=== PATIENT | female | born 1950 | race Caucasian/White ===

== ENCOUNTER 2017-03-18 18:28 | Emergency (ER) | payer MEDICARE, BC, OTHER ==
[~2017-03-18] VITALS: Ht 147.3 cm; Wt 83.2 kg
[2017-03-18] MEDS ORDERED: MECL-68 PO (18:40)
[2017-03-18] MEDS ORDERED: PIOG15TA3 (18:40)
[2017-03-18] MEDS ORDERED: INSULANT (18:40)
[2017-03-18] MEDS ORDERED: SIMV10TA2 (18:40)
[2017-03-18] MEDS ORDERED: ASPI81TA85 PO (18:40)
[2017-03-18] MEDS ORDERED: AMLO5TAB2 (18:40)
[2017-03-18] MEDS ORDERED: BUPR150T5 (18:40)
[2017-03-18] MEDS ORDERED: VALSART/HCTZ (18:40)
[2017-03-18] MEDS ORDERED: LEVO137T2 (18:40)
[2017-03-18 19:59] LABS: BASO % 0.1 % (0.0-1.0); EOS # 0.1 10^3/uL (0.0-0.50); EOS % 1.3 % (0.0-3.0); IMMATURE GRANULOCYTE % 0.5 % (0-0); LYMPH # 1.2 10^3/uL (1.5-4.5); LYMPH % 13.3 % (24.0-44.0); MEAN CORPUSCULAR HEMOGLOBIN 19.1 pg (27.0-33.0); MEAN CORPUSCULAR HGB CONC 30.8 g/dl (32.0-36.5); MONO # 0.5 10^3/uL (0.0-0.8); MONO % 6.1 % (0.0-5.0); NEUTROPHILS # 6.9 10^3/uL (1.8-7.7); NEUTROPHILS % 78.7 % (36.0-66.0); PLATELET COUNT, AUTOMATED 187 10^3/uL (150-450); WHITE BLOOD COUNT 8.8 10^3/uL (4.0-10.0)
[2017-03-18 20:06] LABS: MEAN CORPUSCULAR VOLUME 62.2 fl (80.0-96.0)
[2017-03-18 20:07] LABS: ADD MORPHOLOGY? YES
[2017-03-18] MEDS ORDERED: NS 1,000 ML IV ONE (20:15)
[2017-03-18] MEDS ORDERED: MECLIZINE 25 MG TABLET PO ONE (20:15)
[2017-03-18] MEDS ORDERED: ONDANSETRON 4MG/2ML VIAL (J2405) IV ONE (20:30)
[2017-03-18 20:32] LABS: HYPOCHROMASIA 2+; MICROCYTOSIS 3+; POIKILOCYTOSIS 2+; TEAR DROP CELLS 2+
[2017-03-18 20:34] LABS: ANISOCYTOSIS 1+; HELMET CELLS 1+; POLYCHROMASIA 1+
[2017-03-18 20:36] LABS: SCHISTOCYTES 1+
[2017-03-18 20:46] LABS: ANION GAP 4 MEQ/L (8-16); BLOOD UREA NITROGEN 34 MG/DL (7-18); CALCIUM LEVEL 9.7 MG/DL (8.8-10.2); CARBON DIOXIDE LEVEL 28 MEQ/L (21-32); CHLORIDE LEVEL 107 MEQ/L (98-107); CREATININE FOR GFR 1.65 MG/DL (0.55-1.02); GLOMERULAR FILTRATION RATE 33.1 (>45); GLUCOSE, FASTING 156 MG/DL (80-110); MAGNESIUM LEVEL 1.9 MG/DL (1.8-2.4); POTASSIUM SERUM 4.5 MEQ/L (3.5-5.1); SODIUM LEVEL 139 MEQ/L (136-145)
--- NOTE | 2017-03-18 21:20 | REPUSA ---
CT of the head Clinical history: dizziness. Technique: Multiple axial CT images were obtained through the head without administration of contrast . Findings: The ventricles and sulci are symmetric bilaterally. There is no evidence of acute hemorrhag e or infarct. There is no midline shift, mass effect, or extra-axial fluid collection. The osseous st ructures are unremarkable. The visualized paranasal sinuses and mastoid air cells are clear. Impression: Negative study.
[2017-03-18 22:10] VITALS: BP 172/82
--- NOTE | 2017-03-19 07:45 | ECGEPIP ---
Stationary ECG Study [facility] - ED Test Date: 2017-03-18 Pat Name: MARIAELENA GREER Department: Room: - Gender: F Private Duty Nurse: nd : 1950 Requested By: HUSEYIN MARIA Order Number: [id number] Reading MD: Libby Zapata Measurements Intervals Radiant Rate: 60 P: 52 TN: 188 QRS: 34 QRSD: 74 T: 40 QT: 386 QTc: 388 Interpretive Statements SINUS RHYTHM LOW QRS VOLTAGE IN PRECORDIAL LEADS PRWP NO PRIOR FOR COMPARISON Electronically Signed On 03-19-2017 7:44:49 EDT by Libby Zapata
== END 2017-03-18 22:10 | disposition home or self-care (01) ==
LOC: M ED 18:28
DX: H81.399 Other peripheral vertigo, unspecified ear (principal); D56.9 Thalassemia, unspecified; I25.10 Atherosclerotic heart disease of native coronary artery without angina pectoris; E11.9 Type 2 diabetes mellitus without complications; I10 Essential (primary) hypertension; J45.909 Unspecified asthma, uncomplicated; Z79.899 Other long term (current) drug therapy; Z88.0 Allergy status to penicillin; Z88.2 Allergy status to sulfonamides; Z98.890 Other specified postprocedural states
CPT/HCPCS: 70450; 80048; 82550; 82553; 83735; 84443; 84484; 85025; 93005; 96361; 96374; 99284; J2405

== ENCOUNTER 2018-03-31 07:10 | Day surgery (SDC) | payer MEDICARE, BC, OTHER ==
[~2018-03-31 07:10] MED LIST: MIDAZOLAM INJ 2 MG/2 ML VIAL (J2250) As Ordered; fentaNYL 100 MCG/2 ML INJECTION (J3010) As Ordered
[2018-03-31 07:38] LABS: BEDSIDE GLUCOSE 101 MG/DL (80-115)
[2018-03-31] MEDS: PROPARACAINE 0.5% OPHTH SOL 15ML OD (07:38)
[2018-03-31] MEDS: OFLOXACIN 0.3 % (OCUFLOX) OPTH SOL 5ML OD (07:38)
[2018-03-31] MEDS: PHENYLEPHRINE 2.5% OPHTH SOL 2ML OD (07:38)
[2018-03-31] MEDS: TROPICAMIDE 1% OPHTH SOLN 2ML OD (07:38)
[2018-03-31] MEDS: POVIDONE-IODINE 5% OPHTH PREP SOL 30ML As Ordered (09:01)
[2018-03-31] MEDS: DUOVISC (0.50ML VISCOAT/0.55ML PROVISC) OPHTH KIT As Ordered (09:06)
[2018-03-31] MEDS: BALANCED SALT IRRIGATION SOLUTION 500ML BAG (FOR OR EYE MACHINE) As Ordered (09:06)
[2018-03-31] MEDS: LIDOCAINE 0.75%/EPINEPHRINE 0.025% IN BSS 1ML SYR INTRACAMERAL (OR ONLY) As Ordered (09:07)
[2018-03-31] MEDS: MOXIFLOXACIN IN BSS 0.25MG/0.25ML INTRACAMERAL INJ (OR EYE ONLY)(J2280) As Ordered (09:07)
== END 2018-03-31 09:50 | disposition home or self-care (01) ==
LOC: M SDC 07:10
DX: H25.11 Age-related nuclear cataract, right eye (principal); E11.9 Type 2 diabetes mellitus without complications; I10 Essential (primary) hypertension; E78.5 Hyperlipidemia, unspecified; Z79.82 Long term (current) use of aspirin; Z79.899 Other long term (current) drug therapy; G47.30 Sleep apnea, unspecified; Z88.0 Allergy status to penicillin; Z88.2 Allergy status to sulfonamides
CPT/HCPCS: 66984

== ENCOUNTER → 2018-09-17 | Outpatient (CLI) | payer MEDICARE, BC, OTHER ==
[~2018-09-17] MED LIST changes: +AMLO5TAB6 PO; +ASPI81TA85 PO; +BUPR150T5 PO; +INSULANT; +LEVO137T2 PO; +MECL-68 PO; -MIDAZOLAM INJ 2 MG/2 ML VIAL (J2250) As Ordered; +PIOG1TAB36 PO; +SIMV10TA2 PO; +VALS320T3 PO; +VALSART/HCTZ; -fentaNYL 100 MCG/2 ML INJECTION (J3010) As Ordered
--- NOTE | 2018-09-17 16:19 | REP ---
Tib-fib series: Four views. History: Right ankle pain after missing.. Findings: There is an evulsion fracture fragment along the lateral aspect of the calcaneus visible on the frontal view with overlying soft tissue swelling. Ankle mortise is intact. No ankle fracture is seen. There is plantar and Achilles calcaneal spurring. Impression: Avulsion chip fracture from the anterolateral aspect of the calcaneus visible on the frontal radiographs. Overlying soft tissue swelling of the hind foot and midfoot. No ankle fracture seen. Electronically Signed by Riky Murphy MD 09/17/2018 04:11 P
== END ==
LOC: M WUC 16:01
PROVIDERS: ATTEND Physician Assistant
DX: S92.021A Displaced fracture of anterior process of right calcaneus, initial encounter for closed fracture (principal); M79.89 Other specified soft tissue disorders; X58.XXXA Exposure to other specified factors, initial encounter; Y92.9 Unspecified place or not applicable

== ENCOUNTER 2018-10-25 01:21 | Emergency (ER) | payer MEDICARE, BC, OTHER ==
[~2018-10-25] VITALS: Ht 147.3 cm; Wt 87.3 kg
[2018-10-25] MEDS ORDERED: MORPHINE 2 MG/ML 1ML SYRINGE (J2270) IV ONE (02:15)
[2018-10-25] MEDS ORDERED: ONDANSETRON 4MG/2ML VIAL (J2405) IV ONE (02:15)
[2018-10-25] MEDS ORDERED: PRED20TA PO (02:50)
[2018-10-25] MEDS ORDERED: AZIT-12 PO (02:50)
[2018-10-25] MEDS ORDERED: ALBUTEROL 90 MCG/ACT 8GM HFA INHALER INH ONE (03:00)
[2018-10-25] MEDS ORDERED: predniSONE 20 MG TAB PO ONE (03:00)
[2018-10-25] MEDS ORDERED: AZITHROMYCIN 250 MG TAB PO ONE (03:00)
[2018-10-25 03:13] VITALS: BP 165/70
--- NOTE | 2018-10-25 08:37 | REP ---
Chest two views HISTORY: Cough Comparison: None Linear density is present in the lingula consistent with atelectasis or scar. Minimal peribronchial cuffing is present. The heart is normal in size. The pulmonary vasculature is normal in appearance. The bony structure is intact. IMPRESSION: 1. Lingular atelectasis or scar. 2. There is minimal peribronchial cuffing consistent with asthma or bronchitis. Electronically Signed by Antoni Peter MD 10/25/2018 08:28 A
== END 2018-10-25 03:40 | disposition home or self-care (01) ==
LOC: M ED 01:21
DX: J20.8 Acute bronchitis due to other specified organisms (principal); I10 Essential (primary) hypertension; Z77.22 Contact with and (suspected) exposure to environmental tobacco smoke (acute) (chronic); Z79.82 Long term (current) use of aspirin; Z79.899 Other long term (current) drug therapy; Z88.0 Allergy status to penicillin; Z88.2 Allergy status to sulfonamides; Z88.1 Allergy status to other antibiotic agents

== ENCOUNTER → 2019-04-13 | Outpatient (CLI) | payer MEDICARE, BC, OTHER ==
[~2019-04-13] MED LIST changes: +AZIT-12 PO; +METHACHOLINE KIT (J7674) INH ONE; +PRED20TA PO
--- NOTE | 2019-04-13 13:59 | PFTRPT ---
Site: [facility], [address] [place], [address] ID: [id number] Name: MARIAELENA GREER V Visit Date: 04/13/2019 Second ID: [id number] Referring Doctor: Luisana Atkins Reviewing Doctor: Louis Dawkins MD Sales And Management Trainee: Kiara GONZALEZ RRT Age: 68 : 1950 Sex: Female Race: Height: 57.00 Inches Weight: 200.00 Lbs BSA: 1.80 Order IDs: [id number] Requested Test(s): <RESP-PFT.METH CHAL> Diagnosis: R05 of albuterol for postbronchodilator. Review Status: Not Reviewed Pre-Bronch Post-Bronch Pred Actual %Pred Actual %Chng SPIROMETRY FVC (L) 2.24 2.10 93 2.09 FEV1 (L) 1.69 1.84 108 1.75 -4 FEV1/FVC (%) 76 87 115 84 -4 FEF 25% (L/sec) 4.04 4.60 113 4.43 -3 FEF 50% (L/sec) 3.39 3.84 113 3.73 -2 FEF 75% (L/sec) 1.02 1.11 109 0.64 -42 FEF 25-75% (L/sec) 1.59 2.88 181 2.21 -23 FEF Max (L/sec) 4.75 4.68 98 4.48 -4 FIVC (L) 2.22 1.86 -16 FIF 50% (L/sec) 3.34 4.09 122 3.60 -12 FIF Max (L/sec) 4.16 3.59 -13 Expiratory Time (sec) 7.06 6.80 -3 Back Extrap Vol (L) 0.07 0.12 74 Time To FEFmax (sec) 0.139 0.138
== END ==
LOC: M CARPUL 13:04
PROVIDERS: ATTEND Nurse Practitioner Adult Health
DX: R05 Cough (principal)
CPT/HCPCS: 94070; 95070; J7674

== ENCOUNTER → 2019-09-06 | Outpatient (CLI) | payer MEDICARE, BC, OTHER ==
[~2019-09-06] MED LIST changes: -MECL-68 PO; +MECL1TAB31 PO; -METHACHOLINE KIT (J7674) INH ONE; -SIMV10TA2 PO; +SIMV10TA21 PO
--- NOTE | 2019-09-07 18:31 | SLEEPCENT ---
DATE OF PROCEDURE: 09/06/2019 ORDERED BY: Luisana Chong Nocturnal polysomnography was performed for evaluation of sleep physiology in this patient with a prior history of obstructive sleep apnea syndrome. 7 hours and 56 minutes of data were reviewed. There were 288.5 minutes of sleep identified. Sleep latency was normal at 24 minutes. Rapid eye movement (REM) latency was normal. Sleep architecture was fair with periods of wake between 2:00 and 4:00 a.m. resulting in reduced sleep efficiency of 61.4%. The patient's electrocardiogram showed a sinus rhythm with an average heart rate of 62 beats per minute. Rate ranged 44-82. EEG showed normal waveforms for awake and sleep. There were 53 respiratory events identified of 10 seconds in duration or greater for an apnea-hypopnea index of 11. The events were primarily hypopneic, not exclusive to sleep stage nor body posture. Arousals from respiratory events occurred 6.2 times per hour and oxygen desaturations were seen to 90%. There was also some activity noted in the limb leads. Limb movement arousal index was only 3.5. IMPRESSION: Obstructive sleep apnea syndrome (G47.33). Apnea-hypopnea index 11. RECOMMENDATIONS: The patient should be encouraged to return to the sleep disorder center for pressure therapy. In the interim, alcohol and sedative avoidance should be practiced and caution exercised during the operation of motor vehicles.
== END ==
LOC: M SLEEP 20:00
PROVIDERS: ATTEND Nurse Practitioner Adult Health
DX: G47.33 Obstructive sleep apnea (adult) (pediatric) (principal)

== ENCOUNTER → 2020-01-17 | Outpatient (REF) | payer MEDICARE, OTHER ==
[~2020-01-17] MED LIST changes: +ALBU8.5H; +ALOG12.5; +AMLO1TAB24 PO; -AMLO5TAB6 PO; -ASPI81TA85 PO; +ASPI81TA86 PO; +CALC600T57 PO; +LEVO125T4
[2020-02-18 11:45] LABS: HGB SOLUBILITY SEE SEPARATE REPORT
== END ==
LOC: M LAB REF 17:07
PROVIDERS: ATTEND Internal Medicine Nephrology
DX: D56.9 Thalassemia, unspecified (principal)

== ENCOUNTER → 2020-01-26 | Outpatient (CLI) | payer MEDICARE, BC, OTHER ==
[~2020-01-26] MED LIST changes: +ASPI1CHW3 PO
--- NOTE | 2020-02-29 16:19 | REP ---
RENAL ULTRASOUND Delay in reporting results from malfunction of the hospital computer system as the result of a malware attack. REASON FOR EXAM: Stage IV chronic renal disease, type 2 diabetes, and hypertension. FINDINGS: The right kidney measures 10.4 x 4.1 x 3.8 cm. The left kidney measures 10.5 x 5.2 x 4.1 cm. The kidneys are normal in size. The renal cortices are hyperechogenic bilaterally compatible with chronic renal disease. There is no hydronephrosis or calculus on the right or the left. There are no solid or cystic renal masses. IMPRESSION: Hyperechogenic renal cortices bilaterally compatible with chronic renal disease. Otherwise, essentially negative renal ultrasound. The bladder is empty and cannot be evaluated at this time. [facility]
--- NOTE | 2020-02-29 16:20 | REP ---
BLADDER ULTRASOUND: FINDINGS: The pre-void bladder volume is 48 ml in spite of the patient stating she feels full and she drink a lot of fluid. The bladder is incompletely distended and the bladder wall cannot be satisfactorily evaluated. The bladder is completely empty on the post void view. IMPRESSION: Incomplete bladder filling, as described. The bladder completely empties on the post void view. [facility]TDD
== END ==
LOC: M RAD 08:21
PROVIDERS: ATTEND Internal Medicine Nephrology
DX: I12.9 Hypertensive chronic kidney disease with stage 1 through stage 4 chronic kidney disease, or unspecified chronic kidney disease (principal); N18.4 Chronic kidney disease, stage 4 (severe); E11.22 Type 2 diabetes mellitus with diabetic chronic kidney disease

== ENCOUNTER → 2020-02-19 | Outpatient (REF) | payer MEDICARE, BC, OTHER | LOC: M LAB REF 17:18 | PROVIDERS: ATTEND Internal Medicine Nephrology | DX: D56.3 Thalassemia minor (principal) ==

== ENCOUNTER 2020-02-20 11:53 | Outpatient (CLI) | payer MEDICARE, BC, OTHER ==
[~2020-02-20] VITALS: Ht 172.7 cm; Wt 87.0 kg
[~2020-02-20 11:53] MED LIST changes: -ALBU8.5H; -ALOG12.5; -ASPI1CHW3 PO; -CALC600T57 PO; -LEVO125T4
[2020-02-20 12:17] VITALS: BP 142/62
[2020-02-20] MEDS ORDERED: diphenhydrAMINE 25MG CAP As Ordered ONE (12:23)
[2020-02-20] MEDS: diphenhydrAMINE 25MG CAP PO SCH (12:25)
[2020-02-20 12:37] VITALS: BP 142/62
[2020-02-20 12:55] VITALS: BP 136/64
[2020-02-20 13:53] VITALS: BP 141/64
[2020-02-20 14:10] VITALS: BP 136/74
[2020-02-20 14:20] VITALS: BP 136/74
[2020-02-20] MEDS ORDERED: ALOG12.5 (15:09)
[2020-02-20] MEDS ORDERED: LEVO125T4 (15:09)
[2020-02-20] MEDS ORDERED: CALC600T57 PO (15:09)
[2020-02-20] MEDS ORDERED: ALBU8.5H (15:12)
[2020-04-19] MEDS ORDERED: ASPI1CHW3 PO (11:02)
== END 2020-02-20 14:20 | disposition home or self-care (01) ==
LOC: M INFU 11:53
PROVIDERS: ATTEND Internal Medicine Nephrology
DX: D64.9 Anemia, unspecified (principal); Z88.0 Allergy status to penicillin; Z88.2 Allergy status to sulfonamides; Z88.1 Allergy status to other antibiotic agents
CPT/HCPCS: 36430; P9016

== ENCOUNTER → 2020-02-24 | Outpatient (CLI) | payer MEDICARE, BC, OTHER ==
[~2020-02-24] MED LIST changes: +ALBU8.5H; +ALOG12.5; +ASPI1CHW3 PO; +CALC600T57 PO; +LEVO125T4
== END ==
LOC: M LABSMTC 08:26
PROVIDERS: ATTEND Anesthesiology
DX: Z01.812 Encounter for preprocedural laboratory examination (principal); Z20.828 Contact with and (suspected) exposure to other viral communicable diseases
CPT/HCPCS: C9803; U0003

== ENCOUNTER 2020-02-29 07:35 | Day surgery (SDC) | payer MEDICARE, BC, OTHER ==
[~2020-02-29] VITALS: Ht 147.3 cm; Wt 87.3 kg
[~2020-02-29 07:35] MED LIST changes: -ASPI1CHW3 PO; +NS 1,000 ML IV ONE
[2020-02-29] MEDS ORDERED: propofoL 200 MG/20 ML VIAL As Ordered ONE ×2 (08:38→08:39)
[2020-02-29] MEDS ORDERED: LIDOCAINE 2% 100MG/5ML SDV (FOR ANES.) As Ordered ONE (08:39)
--- NOTE | 2020-02-29 08:49 | ROOR ---
Patient Name: Dolly Patterson Procedure Date: 02/29/2020 8:26 AM Date of : 1950 Age: 69 Room: [facility] Gender: Female Note Status: Finalized Procedure: Colonoscopy Indications: High risk colon cancer surveillance: Personal history of colonic polyps Providers: Amaury Hutchinson Jr, MD Referring MD: Raina APONTE Requesting Provider: Medicines: Propofol per Anesthesia Complications: No immediate complications. Procedure: Pre-Anesthesia Assessment: - Prior to the procedure, a History and Physical was performed, and patient medications and allergies were reviewed. The patient is competent. The risks and benefits of the procedure and the sedation options and risks were discussed with the patient. All questions were answered and informed consent was obtained. Patient identification and proposed procedure were verified by the physician and the nurse in the pre-procedure area and in the procedure room. Mental Status Examination: alert and oriented. Airway Examination: normal oropharyngeal airway and neck mobility. Respiratory Examination: clear to auscultation. CV Examination: normal. ASA Grade Assessment: II - A patient with mild systemic disease. After reviewing the risks and benefits, the patient was deemed in satisfactory condition to undergo the procedure. The anesthesia plan was to use moderate sedation / analgesia (conscious sedation). Immediately prior to administration of medications, the patient was re-assessed for adequacy to receive sedatives. The heart rate, respiratory rate, oxygen saturations, blood pressure, adequacy of pulmonary ventilation, and response to care were monitored throughout the procedure. The physical status of the patient was re-assessed after the procedure. The Colonoscope was introduced through the anus and advanced to the cecum, identified by appendiceal orifice and ileocecal valve. The colonoscopy was performed without difficulty. The patient tolerated the procedure well. The quality of the bowel preparation was adequate. Findings: The recto-sigmoid colon, sigmoid colon, descending colon, transverse colon, ascending colon, cecum, appendiceal orifice and ileocecal valve appeared normal. A diminutive polyp was found in the rectum. The polyp was hyperplastic. The polyp was removed with a jumbo cold forceps. Resection and retrieval were complete. Impression: - The recto-sigmoid colon, sigmoid colon, descending colon, transverse colon, ascending colon, cecum, appendiceal orifice and ileocecal valve are normal. - One diminutive polyp in the rectum, removed with a jumbo cold forceps. Resected and retrieved. Recommendation: - Repeat colonoscopy in 5-10 years for surveillance. Amaury Hutchinson MD Amaury Hutchinson Jr, MD 02/29/2020 8:49:23 AM Electronically signed by Amaury Hutchinson Jr, MD Number of Addenda: 0 Note Initiated On: 02/29/2020 8:26 AM Estimated Blood Loss: Estimated blood loss: none.
[2020-02-29 09:21] VITALS: BP 169/76
[2020-04-19] MEDS ORDERED: ASPI1CHW3 PO (11:02)
== END 2020-02-29 09:21 | disposition home or self-care (01) ==
LOC: M OPP 07:35
PROVIDERS: ATTEND Surgery
DX: Z12.11 Encounter for screening for malignant neoplasm of colon (principal); Z86.010 Personal history of colon polyps; K62.1 Rectal polyp; K63.5 Polyp of colon; E03.9 Hypothyroidism, unspecified; E11.9 Type 2 diabetes mellitus without complications; G47.30 Sleep apnea, unspecified; Z79.82 Long term (current) use of aspirin; Z79.899 Other long term (current) drug therapy

== ENCOUNTER → 2020-07-22 | Outpatient (CLI) | payer MEDICARE, BC, OTHER ==
[~2020-07-22] MED LIST changes: +ASPI1CHW3 PO; -NS 1,000 ML IV ONE; +ROCA0.25 PO
--- NOTE | 2020-07-22 12:15 | REP ---
INDICATION: PAIN. COMPARISON: None. TECHNIQUE: Four views of the right foot are presented. FINDINGS: Four views of the right foot demonstrate mild diffuse osteopenia. There is plantar and Achilles calcaneal spurring. Mild osteoarthritis is seen at the 1st MTP joint. No erosive changes are seen.. No fracture or subluxation is seen. No opaque foreign body noted. IMPRESSION: Calcaneal spurring and mild 1st MTP joint osteoarthritis. Mild diffuse osteopenia. No acute bony abnormality.. <Electronically signed by Yobany Murphy > 07/22/20 [id number]
== END ==
LOC: M WUC 11:40
PROVIDERS: ATTEND Physician Assistant
DX: M77.31 Calcaneal spur, right foot (principal); M85.871 Other specified disorders of bone density and structure, right ankle and foot

== ENCOUNTER → 2020-10-10 | Outpatient (CLI) | payer MEDICARE, BC, OTHER ==
--- NOTE | 2020-10-10 10:23 | REP ---
INDICATION: PAIN BILATERAL KNEES. COMPARISON: None. TECHNIQUE: Bilateral PA and lateral standing views, sunrise views. FINDINGS: There is no fracture or dislocation. There is moderately severe medial joint space narrowing symmetrically bilaterally with subchondral sclerosis and moderate spurring. There is mild spurring of the superior poles of the patellas bilaterally. There is mild spurring of the lateral patellar facets. There appear to be small suprapatellar effusions bilaterally. IMPRESSION: Bilateral arthritic changes as above. <Electronically signed by Alexys Camarillo > 10/10/20 [id number]
== END ==
LOC: M SOG 08:29
PROVIDERS: ATTEND Orthopaedic Surgery Adult Reconstructive Orthopaedic Surgery
DX: M25.562 Pain in left knee (principal); M25.561 Pain in right knee

== ENCOUNTER → 2020-11-26 | Outpatient (REF) | payer MEDICARE, OTHER ==
[~2020-11-26] MED LIST changes: +ACET1TAB55 PO; -ALOG12.5; +ALOG12.5 PO; +ASPI-551 PO; +HYDR12.55 PO; -LEVO125T4; +LEVO125T4 PO; +OXYC-517 PO; +PROC20004 IJ; +RA B1TAB2 PO; +TRAM50TA2 PO; +VALS1TAB68 PO
[2020-11-26 12:40] LABS: BASO % 0.3 % (0.0-1.0); EOS # 0.2 10^3/uL (0.0-0.5); EOS % 2.6 % (0.0-3.0); HEMATOCRIT 32.8 % (36.0-47.0); HEMOGLOBIN 9.8 g/dl (12.0-15.5); LYMPH # 1.4 10^3/uL (1.5-5.0); LYMPH % 21.7 % (24.0-44.0); MEAN CORPUSCULAR HEMOGLOBIN 19.9 pg (27.0-33.0); MEAN CORPUSCULAR HGB CONC 29.9 g/dl (32.0-36.5); MEAN CORPUSCULAR VOLUME 66.7 fl (80.0-96.0); MONO # 0.6 10^3/uL (0.0-0.8); MONO % 9.6 % (2.0-8.0); NEUTROPHILS # 4.1 10^3/uL (1.5-8.5); NEUTROPHILS % 65.3 % (36.0-66.0); PLATELET COUNT, AUTOMATED 168 10^3/uL (150-450); RED BLOOD COUNT 4.92 10^6/uL (4.00-5.40); WHITE BLOOD COUNT 6.3 10^3/uL (4.0-10.0)
[2020-11-26 13:05] LABS: C REACTIVE PROTEIN QUANTITATIV 0.35 MG/DL (0.00-0.30); RHEUMATOID FACTOR QUANT 21.6 IU/ML (<15.0)
[2020-11-26 13:15] LABS: ERYTHROCYTE SEDIMENTATION RATE 17 mm/hr (0-30)
[2020-11-28 23:11] LABS: Lyme Disease IgG Ab 18 kDa Ban Absent (.); Lyme Disease IgG Ab 23 kDa Ban Absent (.); Lyme Disease IgG Ab 28 kDa Ban Absent (.); Lyme Disease IgG Ab 30 kDa Ban Absent (.); Lyme Disease IgG Ab 39 kDa Ban Absent (.); Lyme Disease IgG Ab 41 kDa Ban Absent (.); Lyme Disease IgG Ab 45 kDa Ban Absent (.); Lyme Disease IgG Ab 58 kDa Ban Present (.); Lyme Disease IgG Ab 66 kDa Ban Absent (.); Lyme Disease IgG Ab 93 kDa Ban Present (.); Lyme Disease IgG West Blot Int Negative (.); Lyme Disease IgG/IgM Antibodie <0.91 ISR (0.00-0.90); Lyme Disease IgM Ab 23 kDa Ban Absent (.); Lyme Disease IgM Ab 39 kDa Ban Absent (.); Lyme Disease IgM Ab 41 kDa Ban Absent (.); Lyme Disease IgM Ab Quantitati 0.98 index (0.00-0.79); Lyme Disease IgM West Blot Int Negative (.)
== END ==
LOC: M SFHCADAM 10:16
PROVIDERS: ATTEND Physician Assistant
DX: M25.532 Pain in left wrist (principal)

== ENCOUNTER → 2020-11-26 | Outpatient (CLI) | payer MEDICARE, OTHER ==
--- NOTE | 2020-11-26 10:56 | REP ---
INDICATION: LEFT WRIST PAIN COMPARISON: None. TECHNIQUE: Four views left wrist. FINDINGS: There is no evidence of acute fracture, dislocation, or intrinsic bone disease.The joint spaces are unremarkable without significant arthritic change. IMPRESSION: Negative left wrist series. <Electronically signed by Alexys Camarillo > 11/26/20 105
== END ==
LOC: M ADAMS 10:19
PROVIDERS: ATTEND Physician Assistant
DX: M25.532 Pain in left wrist (principal)

== ENCOUNTER → 2020-11-28 | Outpatient (REF) | payer MEDICARE, OTHER ==
[2020-11-28 17:12] LABS: ALBUMIN 4.1 GM/DL (3.2-5.2); BILIRUBIN,TOTAL 0.6 MG/DL (0.2-1.0); CALCIUM LEVEL 9.9 MG/DL (8.8-10.2); CREATININE FOR GFR 1.56 MG/DL (0.55-1.30); GLOMERULAR FILTRATION RATE 34.9 (>39); POTASSIUM SERUM 4.4 MEQ/L (3.5-5.1); TOTAL PROTEIN 7.3 GM/DL (6.4-8.2)
[2020-11-28 17:31] LABS: HEMOGLOBIN A1c 5.7 %
== END ==
LOC: M SFHCADAM 11:31
PROVIDERS: ATTEND Physician Assistant
DX: R76.8 Other specified abnormal immunological findings in serum (principal); E11.22 Type 2 diabetes mellitus with diabetic chronic kidney disease; N18.31 Chronic kidney disease, stage 3a
CPT/HCPCS: 80053; 83036; 93005; G0463

== ENCOUNTER 2020-12-02 14:21 | Outpatient (RCR) | payer MEDICARE, BC, OTHER ==
[~2020-12-02 14:21] MED LIST changes: -ACET1TAB55 PO; -ASPI-551 PO; -OXYC-517 PO; -TRAM50TA2 PO
== END 2020-12-04 ==
LOC: M PT 14:21
PROVIDERS: ATTEND Orthopaedic Surgery Adult Reconstructive Orthopaedic Surgery
DX: Z96.652 Presence of left artificial knee joint (principal)

== ENCOUNTER → 2020-12-11 | Outpatient (CLI) | payer MEDICARE, BC, OTHER ==
--- NOTE | 2020-12-11 13:38 | REP ---
INDICATION: OSTEOARTHRITIS LEFT KNEE. COMPARISON: None. TECHNIQUE: 3 x 3 mm increments using standard helical technique through the hip, knee, and ankle reconstructed in sagittal and coronal planes FINDINGS: At the hip: There is mild slightly asymmetric hip joint space narrowing with a tiny marginal osteophyte arising from the superolateral acetabular rim. Early subchondral cyst formation is seen involving the lateral acetabulum. There is no abnormal subluxation. There is evidence of mild buttressing At the knee: There is advanced medial compartmental narrowing with tibial and femoral subchondral sclerosis. There is advanced tricompartmental marginal osteophytosis. There is asymmetric patellofemoral joint space narrowing. At the ankle: The mortise is intact. There are plantar and retrocalcaneal heel spurs. The subtalar joints are within normal limits. Lateral talar process is sharp. No abnormal cyst formation is seen in the os calcis deep to the angle of Gissane. Moderate degenerative changes seen involving talonavicular articulation laterally. IMPRESSION: Chronic changes as described above. <Electronically signed by Saul Del Toro > 12/11/20 [id number]
== END ==
LOC: M RAD 12:22
PROVIDERS: ATTEND Orthopaedic Surgery Adult Reconstructive Orthopaedic Surgery
DX: M17.12 Unilateral primary osteoarthritis, left knee (principal)

== ENCOUNTER → 2020-12-18 | Outpatient (CLI) | payer MEDICARE, BC, OTHER | LOC: M LABSMTC 09:51 | PROVIDERS: ATTEND Anesthesiology | DX: Z01.812 Encounter for preprocedural laboratory examination (principal) ==

== ENCOUNTER 2020-12-23 06:06 | Observation (INO) | payer MEDICARE, BC, OTHER ==
[2020-12-23] VITALS (8 sets, daily range): BP systolic 115–138; BP diastolic 47–70
[~2020-12-23] VITALS: Ht 147.3 cm; Wt 79.4 kg
[~2020-12-23 06:06] MED LIST changes: +ACETAMINOPHEN 500 MG TAB PO ONE; +LR 1,000 ML IV ONE; +NAPROXEN 250 MG TAB PO ONE; +NS 1,000 ML IV ONE; +PREGABALIN 25 MG CAP (LYRICA) PO ONE; +ROPIVA 125MG/EPINEPH 0.25MG/CLONID 40MCG/KETOR 15MG IN NS 50ML SYRINGE PA ONE; +ceFAZolin SOD 2 GM in IV 1 EA IV ONE; +dexameTHASONE 4 MG/ML 1ML VIAL (J1100 PER 1MG) IV ONE
[2020-12-23] MEDS ORDERED: propofoL 200 MG/20 ML VIAL As Ordered ONE ×3 (06:54→10:01)
[2020-12-23] MEDS ORDERED: LIDOCAINE 2% 100MG/5ML SDV (FOR ANES.) As Ordered ONE (06:54)
[2020-12-23] MEDS ORDERED: MIDAZOLAM INJ 2MG/2ML VIAL (J2250 PER 1MG) As Ordered ONE (06:57)
[2020-12-23] MEDS ORDERED: fentaNYL 100 MCG/2 ML INJECTION (J3010) As Ordered ONE ×2 (06:58→10:48)
[2020-12-23] MEDS ORDERED: TRANEXAMIC ACID 100 MG/ML 10ML VIAL As Ordered ONE ×2 (07:08→08:01)
[2020-12-23] MEDS ORDERED: PHENYLephrine 500MCG 5ML (100MCG/ML) SYRINGE As Ordered ONE ×2 (08:08→08:41)
[2020-12-23] MEDS ORDERED: ePHEDrine SULFATE 25 MG/5 ML(5MG/ML) SYRINGE As Ordered ONE (08:08)
[2020-12-23] MEDS ORDERED: ACETAMINOPHEN 1000MG 100ML IV BTL (OFIRMEV) (J0131 PER 10MG) As Ordered ONE (08:24)
[2020-12-23] MEDS ORDERED: dexameTHASONE 4 MG/ML 1ML VIAL (J1100 PER 1MG) As Ordered ONE (08:58)
[2020-12-23] MEDS: fentaNYL 100 MCG/2 ML INJECTION (J3010) IV PRN ×4 (10:50→11:30)
[2020-12-23] MEDS ORDERED: ONDANSETRON 4MG/2ML VIAL As Ordered ONE (10:56)
[2020-12-23] MEDS ORDERED: ONDANSETRON 4MG/2ML VIAL IV PRN ×2 (11:00)
[2020-12-23] MEDS ORDERED: oxyCODONE 5MG TAB PO PRN ×2 (11:00)
[2020-12-23] MEDS ORDERED: LR 1,000 ML IV SCH (11:00)
[2020-12-23] MEDS ORDERED: SENNA 8.6 MG TAB (SENOKOT) PO PRN (11:00)
--- NOTE | 2020-12-23 11:12 | ROOPDOC ---
[facility] Report Of Operation Report of Operation DATE OF PROCEDURE: 12/23/20 PREPROCEDURE DIAGNOSES: Left knee osteoarthritis POSTPROCEDURE DIAGNOSES: Left knee osteoarthritis PROCEDURE PERFORMED: Left [facility] total knee SURGEON: Piyush Mares MD [employer] SUPERVISOR: BELLA assist ANESTHESIA: Spinal. ESTIMATED BLOOD LOSS: Approximately less than 100 mL. COMPLICATIONS: No known complications. REMARKS: Patient was seen in the preoperative area and her left knee was marked. Consent was obtained for the [facility] left total knee arthroplasty as well. Risks and benefits were discussed as previously described. [facility] TKA plan was reviewed. Of note, the patient had significant flexion contracture greater than 20 degrees and varus knee of approximately 15 degrees or so. Components: Aurora triathlon system press-fit femur and tibia and cemented patellar component Triathlon press-fit tibial component size 2 Triathlon cruciate retaining femoral component size 2 CR Triathlon tibial bearing size to CS 9 mm Triathlon asymmetric patella 35 x 10 mm cemented with antibiotic Simplex cement FINDINGS: Tricompartmental osteoarthritis left knee with significant flexion contracture and varus deformity SPECIMENS REMOVED: None PROCEDURE NOTE: The patient was seen in the preoperative area and her status was updated. [facility] plan was reviewed prior to surgery and adjusted appropriately. DESCRIPTION OF PROCEDURE: Patient was taken to the operating room and after a checklist was performed, the underwent a spinal anesthetic. The patient was then placed supine. The operative leg was then cleansed with chlorhexidine wash followed by 2 times alcohol swab followed by hydrogen peroxide wash. 2 chlorhexidine prep once were then used to clean the leg. The operative extremity was then prepped and draped in the standard sterile fashion. This was done utilizing the William leg alejandra device. A surgical pause was then carried out followed by the surgical safety checklist. 2 stab hole incisions were made approximately 4 fingerbreadths below the tibial tubercle of the left knee for the tibial array pins which were placed. The midline incision over the knee followed by the medial arthrotomy was then carried out. Cautery was used to control bleeders. The soft tissue and fat pad were removed using electrocautery. The femoral array pins were then placed in the medial femoral condyle. The femoral tracker was then placed followed by the tibial tracker. The arrays were then placed over the array pins. The hip center was checked followed by the medial and lateral condyles of the ankle. The registration of the femur and tibia then occurred using the arrays in the [employer] system. Osteophytes were removed at this point, as needed. The leg was then brought into extension and varus and valgus stresses were applied in extension and spoons were used for tensioning as well as a Bartlett in flexion of approximately 95 degrees. Once the soft tissue adjustments were made to the William plan, the plan was carried out utilizing the robot. Of note, the patient had significant varus deformity of approximately 15 degrees or so with a flexion contracture of greater than 20 degrees. The 90 degree blade cuts were made first followed by the straight blade cuts. Once all the cuts were completed with the assistance of the William robot, the rongeur and osteotome were used to remove the bone segments. The tibia did have to be reregistered as one of the tibial array plastic disks was knocked off prior to the tibial plateau cut. A lamina regulatory assistant was used to help remove the medial lateral menisci remnants followed by a curved osteotome to remove any posterior osteophytes from the medial or lateral femoral condyles. A trial femur was placed and secured with a pin. The tibial component was then placed with a 9 mm polyinsert. This was brought into extension and found to have appropriate stability in both flexion and extension. The leg was then brought into extension and the patella was measured using the caliper. A freehand cut using towel clips was used to remove the patellar surface. This was then clamped and reamed appropriately for the press-fit components. A trial was placed and taken through range of motion and found to be nice and stable. The tibia was then appropriately positioned with the correct amount of rotation lined up with the medial third of the tibial tubercle. This was pinned and the keel punch was completed followed by the four-point reaming for the press-fit component. The CR femur had the lug holes drilled. The RE CK local anesthetic cocktail was instilled in the standard fashion. The wound was thoroughly irrigated with pulse lavage. The tibia was then press-fit in position using the mallet and impactors. The femur was then flexed high and positioned aligning the lug holes. This component was impacted then brought out into 90 degrees and impacted further to avoid anywhere to the metal components. The 9 mm polyethylene insert was then trialed, found appropriate and the final component was placed and impacted. The leg was brought into extension and the press-fit polyethylene patellar component was tightened and impacted utilizing the compression device. Unfortunately, the patient had some osteoporotic bone here and the metal backed press-fit component was not sticking appropriately so the decision was made to cement the patellar component. This was rereamed with the patellar reamer. 1 batch of antibiotic cement was mixed with a Vacutainer. This was applied and allowed to dry in position. The leg was taken through stable range of motion. It was thoroughly irrigated. Electrocautery was used to control any bleeders. A layered closure using #1 Vicryl followed by strata fix for the arthrotomy. #1 Vicryl to close down the subcutaneous tissue followed by running subcutaneous 2.0 and then a three-point 0 Monocryl subcuticular stitch antibacterial for the pin site. A two-point 0 nylon suture was used for the incision as the patient had skin that was more amenable to a nylon closure as opposed to the Monocryl subcuticular closure. Layered irrigation with saline and Betadine occurred. Steri-Strips were applied to the pin sites with Mastisol, followed by the Mepilex dressing Patient tolerated the procedure well with no known complications. They were taken to the recovery room in stable condition. The patient will be admitted to the hospitalist service with plan for evaluation with physical therapy and possible discharge home tomorrow. Of note, towards the end of the case the patient was regaining some of her motor function and was moving her toes as the final wrap was put in place. It was noted that the patient was flexing her knee up back to where her original contracture was. I did advise the patient afterwards and will advise her there after that she will have to work on bringing her knee into extension with physical therapy as her muscles and soft tissue will have memory of the 20 degree soft tissue contracture and try to return to this area to rest at baseline. PIYUSH MARES MD Dec 23, 2020 11:12
[2020-12-23] MEDS ORDERED: METOCLOPRAMIDE INJ 10MG/2ML VIAL (J2765 PER 1) As Ordered ONE (11:13)
--- NOTE | 2020-12-23 11:19 | REP ---
INDICATION: POST OP IN PACU COMPARISON: 10/10/2020. TECHNIQUE: AP and lateral left knee. FINDINGS: There is placement of a total left knee prosthesis. The osseous structures are intact and well aligned.Screw holes are seen in the proximal tibial shaft. IMPRESSION: Total knee arthroplasty in good position. <Electronically signed by Alexys Camarillo > 12/23/20 [id number]
[2020-12-23] MEDS ORDERED: METOCLOPRAMIDE INJ 10MG/2ML VIAL (J2765 PER 1) IV PRN (11:25)
[2020-12-23] MEDS ORDERED: KETOROLAC 30 MG/ML 1ML VIAL As Ordered ONE (11:45)
[2020-12-23] MEDS ORDERED: PROMETHAZINE INJ 25 MG/ML VIAL (J2550) IV PRN (11:50)
[2020-12-23] MEDS: ACETAMINOPHEN TAB 650MG DOSE (2X325MG) PO SCH ×3 (12:00→23:03)
[2020-12-23] MEDS ORDERED: KETOROLAC 30 MG/ML 1ML VIAL IV PRN (12:10)
--- NOTE | 2020-12-23 13:05 | HPEPDOC ---
General Date of Admission Date of Service: Dec 23, 2020 Attending Physician: LALO PAIZ MD Chief Complaint The patient is a 70-year-old female admitted with a reason for visit of Left Knee Osteoarthritis. History of Present Illness HPI Pt is a 70yo F who was seen in the PACU today following total knee replacement surgery this morning on her L knee. Pt arrived at [facility] at 6am. Dr. Persaud performed the procedure which was tolerated well by the patient w no noted complications. The surgery was done with use of William robot, and pt was given spinal anesthesia for the procedure. Pt has several year Hx of osteoarthritis involving the L knee joint. Patient will be admitted to the hospitalist service for observation overnight. In the PACU, patient c/o nausea and JARQUIN 5/10 in severity, and was retching. Pt rated her post op L knee pain 9/10. PMHx: DMT2 CKD stage 3b-follows nephrology HTN Hypercholesterolemia Beta-thalassemia- w assoc iron def. anemia-follows w [facility]- last Procrit Injection in Apr 2020. Depression Osteoarthritis of b/l knees Hypothyroidism ASHELY-on CPAP SxHx: 2 (, ) Posterior scalp tumor removal () Multiple D&C Lapband (2009) Sinus surgery () Tonsillectomy Adenoidectomy Colonoscopy (02/2020)-revealed hyperplastic polyp FHx: Father at 74 w Alzheimer's (diagnosed 1 yr prior) Mother at 83 w Alzheimer's (diagnosed a few years prior) Brother recently of ALS. Pt has two sons in good health. SHx: Pt is and lives at home alone, but her sons visit frequently. No Hx tobacco, alcohol, or drug use. No regular exercise. Pt is a retired clerk of court. OFF NOTE: PMHx was mostly obtained from [facility] records. ROS: Gen: Vitals are stable. HEENT: Admits to JARQUIN. Denies vision changes. RESP: Admits to mild SOB, and infrequent exertional dyspnea at home. CVS: Denies chest pain. ABD: Denies abdominal pain or vomiting. MSK: Admits to pain in area of anterior L knee where procedure was done. Neuro: Denies paresthesias. PHYSICAL EXAM Gen: Pt is in mild discomfort d/t nausea. Psych: Pt is alert and oriented x3 HEENT: Hearing is decreased. RESP: CTA b/l, no rhonchi, crackles, or wheeze. Pt is on O2 nasal cannula. CVS: RRR, 2/5 systolic murmur noted. ABD: soft, nontender, nondistended, normoactive sounds. MSK: L lower extremity is wrapped from mid-thigh down. Pt can move toes b/l. Skin: Pt's face was flushed on exam, but color returned to normal. No rash or edema. Neuro: Full sensation along distal feet. IMAGING X-Ray L Knee: Reported as- There is placement of a total left knee prosthesis. The osseous structures are intact and well aligned. Screw holes are seen in the proximal tibial shaft. Total knee arthroplasty in good position. Assessment Pt is 70yo F w PMHx of DMT2, CKD stage 3b, HTN, hypercholesterolemia, beta-thalassemia- w assoc iron def. anemia, depression, osteoarthritis of b/l knees, and hypothyroidism. She underwent total knee replacement surgery of L- side this morning and was seen in the PACU. There were no complications of the surgery and the procedure was tolerated well by the patient. Pt was stable, with nausea, JARQUIN, and L anterior knee pain. She will be admitted to the hospital for overnight monitoring. Plan 1. Status Post Total Knee Replacement L knee pain and headache are being managed by Oxycodone 10mg Q4HP PRN PO, Tramadol Q4H, and Tylenol 650mg Q6H PO. Nausea being controlled by Ondansetron 4mg Q6HP PRN IV. Cefazolin sodium/dextrose 2gm IV 50ml @75mls/hr A4O-wnzhikxozf of infection. PT will be necessary for a full recovery, including working on L knee extension, as pt had prior soft tissue flexion contraction (per surgeon). Incentive spirometry and lung expansion therapy has been ordered to prevent any pneumonia. PT/OT orders in place. ARU admission screen in place. PT is encouraged to get out of bed to chair w assistance. 2. DMT2 Patient will be maintained on insulin sliding scale. Pt is placed on hypoglycemic protocol and consistent carbohydrate diet. 3. HTN Aspirin 81mg PO ordered. 4. Hypothyroidism Will continue home dose of levothyroxine 125mcg PO daily. 5. HTN Will continue w home dose Amlodipine 5mg PO daily. Will hold home dose Hydrochlorothiazide 25mg PO daily. Will hold home dose Valsartan 320mg PO daily. 6. Hypercholesterolemia Will hold home simvastatin 10mg PO. 7. DVT Prophylaxis Heparin SC ordered. TEDs and sequentials. Home Medications Scheduled Alogliptin Benzoate (Alogliptin) 12.5 Mg Tablet, 12.5 MG PO DAILY, (Reported) Amlodipine Besylate (Amlodipine Besylate) 5 Mg Tab, 5 MG PO DAILY, (Reported) Aspirin (Aspirin) 81 Mg Tab.chew, 81 MG PO DAILY for pain, (Reported) Aspirin (Aspirin EC) 81 Mg Tablet.dr, 81 MG PO BID Bupropion Hcl (Bupropion HCl Sr) 150 Mg Tab, 150 MG PO BID, (Reported) Calcitriol (Rocaltrol) 0.25 Mcg Capsule, 0.25 MG PO 5XW, (Reported) Calcium Carbonate/Vitamin D3 (Calcium 600-Vit D3 200 Tablet) 1 Each Tablet, 1 TAB PO DAILY, (Reported) Epoetin Pino (Procrit) 20,000 Unit/1 Ml Vial, 20,000 UNIT IJ PRN, (Reported) Hydrochlorothiazide (Hydrochlorothiazide) 12.5 Mg Tablet, 25 MG PO DAILY, (Reported) Levothyroxine Sodium (Levothyroxine Sodium) 125 Mcg Tablet, 125 MCG PO DAILY, (Reported) Simvastatin (Simvastatin) 10 Mg Tab, 10 MG PO DAILY, (Reported) Valsartan (Valsartan) 320 Mg Tablet, 320 MG PO DAILY, (Reported) Vitamin B Complex (Vitamin B Complex) 1 Each Tablet, 1 TAB PO DAILY, (Reported) Scheduled PRN Acetaminophen (Acetaminophen) 325 Mg Tablet, 650 MG PO Q6HP PRN for PAINFUL PROCEDURES Meclizine HCl (Meclizine HCl) 25 Mg Tab, 25 MG PO PRN PRN for DIZZINESS, (Reported) Oxycodone HCl (Oxycodone HCl) 5 Mg Tablet, 5 MG PO Q6HP PRN for MODERATE PAIN (PS 5-8) Tramadol HCl (Tramadol HCl) 50 Mg Tablet, 50 MG PO Q6HP PRN for MILD PAIN (PS 1- 4) Miscellaneous Medications Albuterol Sulfate (Albuterol Sulfate Hfa) 8.5 Gm Hfa.aer.ad, (Reported) Allergies Coded Allergies: Penicillins (Verified Allergy, Unknown, RASH, 12/02/20) Sulfa (Sulfonamide Antibiotics) (Verified Allergy, Unknown, RASH/VOMITTING, 12/02/20) ampicillin (Verified Allergy, Unknown, RASH, 12/02/20) A-FIB/CHADSVASC A-FIB History Current/History of A-Fib/PAF?: No Current PO Anticoag Therapy: No Vital Signs Vital Signs Date Time Temp Pulse Resp B/P (MAP) Pulse Ox O2 Delivery O2 Flow Rate FiO2 12/23/20 12:55 97.8 71 18 149/65 (93) 100 Nasal Cannula 2.0 Laboratory Data Labs 24H Laboratory Tests 2 12/23/20 06:44: Bedside Glucose (Misc Panel) 103 12/23/20 10:45: Bedside Glucose (Misc Panel) 173H Plan / VTE VTE Prophylaxis Ordered?: Yes GME ATTESTATION GME ATTESTATION My faculty preceptor for this patient encounter was physically present during the encounter and was fully available. All aspects of the patient interview, examination, medical decision making process, and medical care plan development were reviewed and approved by the faculty preceptor. The faculty preceptor is aware and concurs with the plan as stated in the body of this note and will attest to such by his/her cosignature. ATTENDING NOTE I, Lalo Paiz MD, have independently examined this patient and performed my own physical exam, as well as reviewed the documentation and edited where necessary. I have discussed in detail with the resident / student the findings and plan of treatment as documented by the resident / student and edited their note. I agree with their findings and treatment plan and have edited their documentation. I will continue to follow the patient during this hospital stay. KYLAH VILLA OMS-3 Dec 23, 2020 13:05 Charito Dow MD Dec 23, 2020 17:36 LALO PAIZ MD Dec 26, 2020 12:29
[2020-12-23] MEDS: oxyCODONE 5MG TAB PO PRN ×2 (13:12→21:34)
[2020-12-23] MEDS ORDERED: MOM 30ML SUSPENSION UDC PO PRN (13:20)
[2020-12-23] MEDS ORDERED: MAALOX 30 ML SUSP *UDC PO PRN (13:20)
[2020-12-23] MEDS ORDERED: GLUCAGON INJ 1MG VIAL SC PRN (14:00)
[2020-12-23] MEDS ORDERED: GLUCOSE 4GM CHEW TABLET PO PRN (14:00)
[2020-12-23] MEDS ORDERED: DEXTROSE 50% 50 ML SYRINGE IV PRN (14:00)
[2020-12-23] MEDS: ASCORBIC ACID 500 MG TAB PO SCH (15:23)
[2020-12-23] MEDS: ceFAZolin SOD 2 GM in IV 1 EA IV SCH (15:24)
[2020-12-23] MEDS: LR 1,000 ML IV SCH ×2 (15:24→21:05)
[2020-12-23] MEDS: traMADol 50 MG TAB PO PRN (15:28)
[2020-12-23 16:26] LABS: BASO % 0.1 % (0.0-1.0); EOS % 0.1 % (0.0-3.0); HEMATOCRIT 28.3 % (36.0-47.0); HEMOGLOBIN 8.6 g/dl (12.0-15.5); LYMPH # 0.4 10^3/uL (1.5-5.0); LYMPH % 5.1 % (24.0-44.0); MEAN CORPUSCULAR HEMOGLOBIN 19.9 pg (27.0-33.0); MEAN CORPUSCULAR HGB CONC 30.4 g/dl (32.0-36.5); MEAN CORPUSCULAR VOLUME 65.5 fl (80.0-96.0); MONO # 0.1 10^3/uL (0.0-0.8); MONO % 1.4 % (2.0-8.0); NEUTROPHILS # 6.9 10^3/uL (1.5-8.5); NEUTROPHILS % 92.9 % (36.0-66.0); PLATELET COUNT, AUTOMATED 138 10^3/uL (150-450); RED BLOOD COUNT 4.32 10^6/uL (4.00-5.40); WHITE BLOOD COUNT 7.4 10^3/uL (4.0-10.0)
[2020-12-23 16:59] LABS: CALCIUM LEVEL 9.5 MG/DL (8.8-10.2); CREATININE FOR GFR 1.66 MG/DL (0.55-1.30); GLOMERULAR FILTRATION RATE 32.5 (>39); POTASSIUM SERUM 4.7 MEQ/L (3.5-5.1)
[2020-12-23] MEDS: HumaLOG INSULIN (NovoLOG) PER UNIT SC SCH (17:15)
[2020-12-23] MEDS ORDERED: HumaLOG INSULIN (NovoLOG) PER UNIT SC SCH (21:00)
[2020-12-23] MEDS: DOCUSATE SODIUM 100MG CAPSULE PO SCH (21:35)
[2020-12-23] MEDS: ASPIRIN 81MG ENTERIC TABLET PO SCH (21:35)
[2020-12-23] MEDS: HEPARIN SOD (PORCINE) 5000UNITS/ML 1ML VIAL/SYRINGE SC SCH (21:35)
[2020-12-24] MEDS: ceFAZolin SOD 2 GM in IV 1 EA IV SCH (00:36)
[2020-12-24 02:00] VITALS: BP 148/70
[2020-12-24 06:00] VITALS: BP 155/67
[2020-12-24] MEDS ORDERED: LEVOTHYROXINE 125MCG TABLET (0.125MG) PO SCH (06:00)
[2020-12-24] MEDS: ACETAMINOPHEN TAB 650MG DOSE (2X325MG) PO SCH ×2 (06:00→11:59)
[2020-12-24] MEDS: traMADol 50 MG TAB PO PRN ×2 (06:14→11:10)
[2020-12-24] MEDS: LR 1,000 ML IV SCH (07:05)
--- NOTE | 2020-12-24 08:15 | IPNPDOC ---
Text Note Date of Service The patient was seen on 12/24/20. NOTE Postop day 1 left total knee arthroplasty Patient is doing well. She did take some pain medication last evening. She states that she aggravated her knee when she bumped it moving from the commode earlier this morning. She did not have any physical therapy and was only out of bed for the commode chair. She states that she does have a ice machine for her knee but she did not have it set up for her last evening. I was not aware of this in the OR otherwise this would have been set up for her in the OR. On examination, the patient has intact sensation grossly to the left foot and ankle. She has a palpable posterior tibial pulse. She states that her foot and ankle are still little bit numb but she is able to move her toes and dorsiflex her foot. She did have a bulky dressing in position which was taken down. There is no evidence of any staining on the dressing. I did place a pillow case over the patient's knee and set up and applied her icing machine for her. X-ray: X-ray imaging was independently ordered and reviewed by myself. These images were taken in the recovery room. They demonstrate the left total knee arthroplasty in good position without any obvious signs of complication associated with the hardware or any obvious signs of periprosthetic fracture etc. The patient will work with physical therapy today. We did have a discussion about exercises and her recovery. She is aware that she did have a decent flexion contracture that she will have to stretch out and significant soft tissue work was performed in terms of releasing the genu varum that she had. It will be sore when she attempts to move her knee. Patient will be assessed by physical therapy and hospitalist services for possible discharge home today, when able Discharge Instructions Total Knee Arthroplasty 1. Pain: You may take tramadol or oxycodone as prescribed for pain. Supplement with Tylenol as needed. Ice pack to operative knee as tolerated. A cryotherapy unit can be utilized for longer periods of time as long as there is a barrier between the skin. 2. Wound care: Remove dressing on postop day 7. Call [phone] with any questions or concerns. Hygiene: The patient may shower. No tub baths. Check dressing seal prior to bathing. 3. Activity: WBAT left lower. Front wheeled walker versus crutches for ambulation. Fall precautions. 4. Driving: No driving until cleared by your surgeon. Do not drive if taking narcotic pain medications as these may make you drowsy. 5. DVT Prophylaxis: Continue taking aspirin 81 mg p.o. twice daily as prescribed for the prevention of blood clots. Ankle pumps every 1 hour while awake. BENJAMIN hose at all times for 1 month after surgery. May remove for hygiene and wound care. 6. Placement: Plan is to discharge patient to home with home health including nursing and physical therapy. 7. Surgeon Follow-up: The patient is scheduled to be seen in Dr. Mares's office 2 weeks post op with xrays. 8. Primary care Follow-up: Please see your primary care provider in the next 2 to 5 weeks for general medical re-evaluation and medication review. 9. Labs: CBC without differential and BMP to be drawn on postop day 3 with results to PCP and please fax to [phone]. 10. Please contact [facility] if you have any questions or concerns at [phone]. VS,Fishbone, I+O VS, Fishbone, I+O Laboratory Tests 12/23/20 15:07 Vital Signs Date Time Temp Pulse Resp B/P (MAP) Pulse Ox O2 Delivery O2 Flow Rate FiO2 12/24/20 06:44 18 Room Air 12/24/20 06:00 97.7 57 155/67 (96) 95 12/23/20 17:00 2.0 I&O- Last 24 Hours up to 6 AM 12/24/20 06:00 Intake Total 4360 ml Output Total 700 ml Balance 3660 ml HUSEYIN MARES MD Dec 24, 2020 08:15
[2020-12-24 08:24] LABS: BASO % 0.1 % (0.0-1.0); EOS % 0.1 % (0.0-3.0); HEMOGLOBIN 8.1 g/dl (12.0-15.5); LYMPH # 0.9 10^3/uL (1.5-5.0); MEAN CORPUSCULAR HEMOGLOBIN 20.2 pg (27.0-33.0); MEAN CORPUSCULAR HGB CONC 31.2 g/dl (32.0-36.5); MEAN CORPUSCULAR VOLUME 64.8 fl (80.0-96.0); MONO # 0.8 10^3/uL (0.0-0.8); MONO % 8.9 % (2.0-8.0); NEUTROPHILS # 7.4 10^3/uL (1.5-8.5); NEUTROPHILS % 80.2 % (36.0-66.0); PLATELET COUNT, AUTOMATED 148 10^3/uL (150-450); RED BLOOD COUNT 4.01 10^6/uL (4.00-5.40); WHITE BLOOD COUNT 9.2 10^3/uL (4.0-10.0)
[2020-12-24 08:45] LABS: CREATININE FOR GFR 2.05 MG/DL (0.55-1.30); GLOMERULAR FILTRATION RATE 25.5 (>39); POTASSIUM SERUM 4.6 MEQ/L (3.5-5.1)
[2020-12-24] MEDS ORDERED: amLODIPine 5 MG TAB PO SCH (09:00)
[2020-12-24] MEDS ORDERED: FERROUS SULFATE 325MG TAB PO SCH (09:00)
[2020-12-24] MEDS: HumaLOG INSULIN (NovoLOG) PER UNIT SC SCH ×2 (09:03→12:00)
[2020-12-24] MEDS: DOCUSATE SODIUM 100MG CAPSULE PO SCH (09:03)
[2020-12-24] MEDS: ASPIRIN 81MG ENTERIC TABLET PO SCH (09:04)
[2020-12-24] MEDS: ASCORBIC ACID 500 MG TAB PO SCH (09:04)
[2020-12-24] MEDS: HEPARIN SOD (PORCINE) 5000UNITS/ML 1ML VIAL/SYRINGE SC SCH (09:04)
[2020-12-24 09:06] VITALS: BP 141/64
[2020-12-24 10:00] VITALS: BP 138/56
[2020-12-24] MEDS: oxyCODONE 5MG TAB PO PRN (11:59)
[2020-12-24] MEDS ORDERED: OXYC-517 PO (12:22)
[2020-12-24] MEDS ORDERED: ACET1TAB55 PO (12:22)
[2020-12-24] MEDS ORDERED: TRAM50TA2 PO (12:22)
--- NOTE | 2020-12-24 12:34 | DS.PDOC ---
Discharge Summary General Date of Admission December 24, 2020 Date of Discharge 12/24/20 Discharge Summary PROCEDURES PERFORMED DURING STAY: Total Knee Arthroplasty prior to admission. ADMITTING DIAGNOSES: 1. Status Post Total L Knee Arthroplasty 2. Osteoarthritis 3. CKD stage 3b-follows nephrology 4. HTN 5. Hypercholesterolemia 6. Beta-thalassemia- w assoc iron def. anemia-follows w [facility]- last Procrit Injection in Apr 2020. 7. DMT2 8. Depression 9. Hypothyroidism 10. ASHELY-on CPAP DISCHARGE DIAGNOSES: 1. Status Post Total L Knee Arthroplasty 2. Osteoarthritis 3. CKD stage 3b-follows nephrology 4. HTN 5. Hypercholesterolemia 6. Beta-thalassemia- w assoc iron def. anemia-follows w [facility]- last Procrit Injection in Apr 2020. 7. DMT2 8. Depression 9. Hypothyroidism 10. ASHELY-on CPAP COMPLICATIONS/CHIEF COMPLAINT: Left Knee Osteoarthritis. 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 anemia, depression, and hypothyroidism. Pt underwent total knee replacement arthroplasty yesterday morning on the L side. Procedure was performed by Dr. Persaud, and the pt tolerated the procedure and there were no complications. The pt was admini stered spinal anesthesia for the procedure, and a eco[employer] robot was used to perform the operation. Pt was admitted to hospitalist service for post op overnight observation. HOSPITAL COURSE: Pt was evaluated in PACU yesterday in recovery from her total knee arthroplasty done that morning. She was experiencing nausea, JARQUIN, and L anterior knee pain in the PACU. L knee pain and headache were managed by Oxycodone, Tramadol, and Tylenol, with relief over 24 hrs. Nausea was successfully controlled by Ond ansetron. To prevent any infection or pneumonia, a dose of Cefazolin was given, and incentive spirometry and lung expansion therapy was worked on during her stay. Pt was encouraged to get out of bed to chair w assistance, and was able to do so. Pt was given DVT prophylaxis of Heparin SC, TEDs, and sequentials. Pt was seen at bedside this morning and was feeling much better than yesterday when she was seen after surgery. Admits nausea and JARQUIN she was experiencing in PACU yesterday have mostly subsided, and that knee pain is tolerable on pain meds. Total oral intake sufficient at 4360ml yesterday, and pt had good appetite this morning. Denied chest pain, SOB, vomiting, abdominal pain, paresthesias, dysuria. DISCHARGE MEDICATIONS: Please see below. ALLERGIES: Please see below. PHYSICAL EXAMINATION ON DISCHARGE: VITAL SIGNS: Please see below. Gen: no fever, patient is pleasant and comfortable. Psych: A+Ox3. RESP: CTA b/l, no wheeze, rhonchi, or crackles. CVS: RRR, 2/5 systolic murmur. ABD: soft, NT, ND, normoactive sounds. MSK: Plantarflexion 5/5 b/l. L lower extremity is wrapped from mid-thigh to distal leg. Neuro: sensation intact on distal lower extremities. LABORATORY DATA: Please see below. IMAGING: Knee X-Ray (12/23) Reported as- There is placement of a total left knee prosthesis. The osseous structures are intact and well aligned. Screw holes are seen in the proximal tibial shaft. Total knee arthroplasty in good position. PROGNOSIS: Good. ACTIVITY: Pt may shower. Check dressing seal prior to bathing. Weight bearing as tolerated on left lower extremity, and pt should use walker or crutches for ambulation. No driving until cleared by surgeon. Ankle pumps every 1 hour while awake. DISCHARGE PLAN: Discharge to home with home health including nursing and physical therapy. PT/OT order in place. ARU admission screen in place. DISPOSITION: Home. DISCHARGE INSTRUCTIONS: 1. Start taking aspirin 81 mg PO twice daily for the prevention of blood clots, until f/u with orthopedics for medication review. 2. Pt may take Oxycodone 5mg PO Q6H for 5 days (20pills Rx) for severe pain. 3. Pt may take Tramadol 50mg PO Q6H for 7 days (40pills Rx) for moderate pain. 4. Pt may take Acetaminophen 650mg Q6H PRN for mild pain. 5. Ice pack to operative knee as tolerated. 6. Remove dressing on postop day 7. 7. BENJAMIN hose at all times for 1 month after surgery. May remove for hygiene and wound care. 8. Resume all home medications. ITEMS TO FOLLOWUP ON ON OUTPATIENT: 1. Pt is scheduled for f/u w Dr. Persaud's office on 8/2 at 10am for post op eval with x-rays. 2. Pt is scheduled for f/u w PCP (Dr. Pitt) on 01/01 for general medical re- evaluation and medication review. DISCHARGE CONDITION: Stable. TIME SPENT ON DISCHARGE: Greater than 45 minutes. Vital Signs/I&Os Vital Signs Date Time Temp Pulse Resp B/P (MAP) Pulse Ox O2 Delivery O2 Flow Rate FiO2 12/24/20 11:59 18 Room Air 12/24/20 10:00 99.2 65 138/56 (83) 97 12/23/20 17:00 2.0 I&O- Last 24 Hours up to 6 AM 12/24/20 06:00 Intake Total 4360 ml Output Total 700 ml Balance 3660 ml Laboratory Data Labs 24H Laboratory Tests 2 12/23/20 15:07: Immature Granulocyte % (Auto) 0.4, Neutrophils (%) (Auto) 92.9H, Lymphocytes (%) (Auto) 5.1L, Monocytes (%) (Auto) 1.4L, Eosinophils (%) (Auto) 0.1, Basophils (%) (Auto) 0.1, Neutrophils # (Auto) 6.9, Lymphocytes # (Auto) 0.4L, Monocytes # (Auto) 0.1, Eosinophils # (Auto) 0.0, Basophils # (Auto) 0.0, Nucleated Red Blood Cells % (auto) 0.0, Anion Gap 5L, Glomerular Filtration Rate 32.5L, Calc ium Level 9.5 12/23/20 22:58: Bedside Glucose (Misc Panel) 270H 12/24/20 07:49: Immature Granulocyte % (Auto) 0.7, Neutrophils (%) (Auto) 80.2H, Lymphocytes (%) (Auto) 10.0L, Monocytes (%) (Auto) 8.9H, Eosinophils (%) (Auto) 0.1, Basophils (%) (Auto) 0.1, Neutrophils # (Auto) 7.4, Lymphocytes # (Auto) 0.9L, Monocytes # (Auto) 0.8, Eosinophils # (Auto) 0.0, Basophils # (Auto) 0.0, Nucleated Red Blood Cells % (auto) 0.0, Anion Gap 8, Glomerular Filtration Rate 25.5L, Calcium Level 9.0 12/24/20 11:47: Bedside Glucose (Misc Panel) 113H CBC/BMP Laboratory Tests 12/23/20 15:07 12/24/20 07:49 FSBS Laboratory Tests Test 12/23/20 22:58 12/24/20 11:47 Range/Units Bedside Glucose (Misc Panel) 270 113 83-110 MG/DL Discharge Medications Scheduled Alogliptin Benzoate (Alogliptin) 12.5 Mg Tablet, 12.5 MG PO DAILY, (Reported) Amlodipine Besylate (Amlodipine Besylate) 5 Mg Tab, 5 MG PO DAILY, (Reported) Aspirin (Aspirin) 81 Mg Tab.chew, 81 MG PO DAILY for pain, (Reported) Aspirin (Aspirin EC) 81 Mg Tablet.dr, 81 MG PO BID Bupropion Hcl (Bupropion HCl Sr) 150 Mg Tab, 150 MG PO BID, (Reported) Calcitriol (Rocaltrol) 0.25 Mcg Capsule, 0.25 MG PO 5XW, (Reported) Calcium Carbonate/Vitamin D3 (Calcium 600-Vit D3 200 Tablet) 1 Each Tablet, 1 TAB PO DAILY, (Reported) Epoetin Pino (Procrit) 20,000 Unit/1 Ml Vial, 20,000 UNIT IJ PRN, (Reported) Hydrochlorothiazide (Hydrochlorothiazide) 12.5 Mg Tablet, 25 MG PO DAILY, (Reported) Levothyroxine Sodium (Levothyroxine Sodium) 125 Mcg Tablet, 125 MCG PO DAILY, (Reported) Simvastatin (Simvastatin) 10 Mg Tab, 10 MG PO DAILY, (Reported) Valsartan (Valsartan) 320 Mg Tablet, 320 MG PO DAILY, (Reported) Vitamin B Complex (Vitamin B Complex) 1 Each Tablet, 1 TAB PO DAILY, (Reported) Scheduled PRN Acetaminophen (Acetaminophen) 325 Mg Tablet, 650 MG PO Q6HP PRN for PAINFUL PROCEDURES Meclizine HCl (Meclizine HCl) 25 Mg Tab, 25 MG PO PRN PRN for DIZZINESS, (Reported) Oxycodone HCl (Oxycodone HCl) 5 Mg Tablet, 5 MG PO Q6HP PRN for MODERATE PAIN (PS 5-8) Tramadol HCl (Tramadol HCl) 50 Mg Tablet, 50 MG PO Q6HP PRN for MILD PAIN (PS 1- 4) Miscellaneous Medications Albuterol Sulfate (Albuterol Sulfate Hfa) 8.5 Gm Hfa.aer.ad, (Reported) Allergies Coded Allergies: Penicillins (Verified Allergy, Unknown, RASH, 12/02/20) Sulfa (Sulfonamide Antibiotics) (Verified Allergy, Unknown, RASH/VOMITTING, 12/02/20) ampicillin (Verified Allergy, Unknown, RASH, 12/02/20) GME ATTESTATION GME ATTESTATION My faculty preceptor for this patient encounter was physically present during the encounter and was fully available. All aspects of the patient interview, examination, medical decision making process, and medical care plan development were reviewed and approved by the faculty preceptor. The faculty preceptor is aware and concurs with the plan as stated in the body of this note and will attest to such by his/her cosignature. ATTENDING NOTE I, Lalo Paiz MD, have independently examined this patient and performed my own physical exam, as well as reviewed the documentation and edited where necessary. I have discussed in detail with the resident / student the findings and plan of treatment as documented by the resident / student and edited their note. I agree with their findings and treatment plan and have edited their documentation. I will continue to follow the patient during this hospital stay. Total time spent on this discharge including coordination of care, chart review, documentation and actual patient care is around 35 minutes KYLAH VILLA OMS-3 Dec 24, 2020 12:34 Charito Dow MD Dec 24, 2020 16:17 LALO PAIZ MD Dec 26, 2020 12:31
[2020-12-24] MEDS ORDERED: ASPI-551 PO (12:54)
== END 2020-12-24 14:50 | disposition home health service (06) ==
LOC: M SDC 06:06 → M MS5PR 13:20 → M SDC 13:40 → M MS5PR 13:40 → M SDC 12-24 14:50 → M MS5PR 12-24 14:50
PROVIDERS: ADMIT Internal Medicine; ATTEND Orthopaedic Surgery Adult Reconstructive Orthopaedic Surgery
DX: M17.12 Unilateral primary osteoarthritis, left knee (principal); N18.32 Chronic kidney disease, stage 3b; I12.9 Hypertensive chronic kidney disease with stage 1 through stage 4 chronic kidney disease, or unspecified chronic kidney disease; E78.00 Pure hypercholesterolemia, unspecified; D56.1 Beta thalassemia; D50.8 Other iron deficiency anemias; E11.22 Type 2 diabetes mellitus with diabetic chronic kidney disease; E03.9 Hypothyroidism, unspecified; F32.9 Major depressive disorder, single episode, unspecified; G47.33 Obstructive sleep apnea (adult) (pediatric); K59.00 Constipation, unspecified; M81.0 Age-related osteoporosis without current pathological fracture; F41.9 Anxiety disorder, unspecified; N25.81 Secondary hyperparathyroidism of renal origin; J45.909 Unspecified asthma, uncomplicated; R01.1 Cardiac murmur, unspecified; Z98.84 Bariatric surgery status; Z79.899 Other long term (current) drug therapy; Z79.82 Long term (current) use of aspirin; Z88.0 Allergy status to penicillin; Z88.2 Allergy status to sulfonamides; Z88.1 Allergy status to other antibiotic agents
CPT/HCPCS: 27447; 36415; 73560; 80048; 85025; 88304; 88311; 96365; 96366; 96372; 96376; 97116; 97161; 97530; C1713; C1776; G0378; J0690; J1100; J1644; J1885; J2250; J2370; J2405; J2765; J3010; S2900

== ENCOUNTER → 2021-01-06 | Outpatient (CLI) | payer MEDICARE, BC, OTHER ==
[~2021-01-06] MED LIST changes: +ACET1TAB55 PO; -ACETAMINOPHEN 500 MG TAB PO ONE; +ASPI-551 PO; -LR 1,000 ML IV ONE; -NAPROXEN 250 MG TAB PO ONE; -NS 1,000 ML IV ONE; +OXYC-517 PO; -PREGABALIN 25 MG CAP (LYRICA) PO ONE; -ROPIVA 125MG/EPINEPH 0.25MG/CLONID 40MCG/KETOR 15MG IN NS 50ML SYRINGE PA ONE; +TRAM50TA2 PO; -ceFAZolin SOD 2 GM in IV 1 EA IV ONE; -dexameTHASONE 4 MG/ML 1ML VIAL (J1100 PER 1MG) IV ONE
--- NOTE | 2021-01-06 11:50 | REP ---
INDICATION: ENCOUNTER FOR OTHER SPECIFIED SURGICAL AFTERCARE. COMPARISON: Left knee, 10/10/2020. TECHNIQUE: AP lateral and sunrise views of the left knee were obtained. FINDINGS: Status post left total knee arthroplasty. The patellar, femoral and tibial components appear in normal apposition. There is no evidence of fracture. There is a moderate knee joint effusion. There is mild postoperative periarticular soft tissue swelling. IMPRESSION: Normal appearance status post total knee arthroplasty. <Electronically signed by Ezio Horne > 01/06/21 114
== END ==
LOC: M SOG 10:12
PROVIDERS: ATTEND Orthopaedic Surgery Adult Reconstructive Orthopaedic Surgery
DX: Z48.89 Encounter for other specified surgical aftercare (principal); Z96.652 Presence of left artificial knee joint

== ENCOUNTER → 2021-02-04 | Outpatient (RCR) | payer MEDICARE, BC, OTHER | END | disposition still patient (30) | LOC: M PT 14:39 | PROVIDERS: ATTEND Orthopaedic Surgery Adult Reconstructive Orthopaedic Surgery | DX: Z96.651 Presence of right artificial knee joint (principal) ==

== ENCOUNTER 2021-03-05 07:59 | Outpatient (RCR) | payer MEDICARE, BC, OTHER | END 2021-03-06 | LOC: M PT 07:59 | PROVIDERS: ATTEND Orthopaedic Surgery Adult Reconstructive Orthopaedic Surgery | DX: Z96.651 Presence of right artificial knee joint (principal) ==

== ENCOUNTER → 2021-03-06 | Outpatient (REF) | payer MEDICARE, OTHER | LOC: M LAB REF 17:32 | PROVIDERS: ATTEND Internal Medicine Nephrology | DX: N18.32 Chronic kidney disease, stage 3b (principal) ==

== ENCOUNTER → 2021-03-06 | Outpatient (REF) | payer MEDICARE, OTHER ==
[2021-03-06 11:27] LABS: BASO % 0.3 % (0.0-1.0); EOS # 0.1 10^3/uL (0.0-0.5); EOS % 1.8 % (0.0-3.0); HEMATOCRIT 29.8 % (36.0-47.0); HEMOGLOBIN 8.9 g/dl (12.0-15.5); LYMPH # 1.3 10^3/uL (1.5-5.0); LYMPH % 16.8 % (24.0-44.0); MEAN CORPUSCULAR HEMOGLOBIN 20.1 pg (27.0-33.0); MEAN CORPUSCULAR HGB CONC 29.9 g/dl (32.0-36.5); MEAN CORPUSCULAR VOLUME 67.3 fl (80.0-96.0); MONO # 0.6 10^3/uL (0.0-0.8); MONO % 7.8 % (2.0-8.0); NEUTROPHILS # 5.8 10^3/uL (1.5-8.5); NEUTROPHILS % 72.7 % (36.0-66.0); PLATELET COUNT, AUTOMATED 208 10^3/uL (150-450); RED BLOOD COUNT 4.43 10^6/uL (4.00-5.40); WHITE BLOOD COUNT 7.9 10^3/uL (4.0-10.0)
[2021-03-06 11:45] LABS: ALBUMIN 3.6 GM/DL (3.2-5.2); BILIRUBIN,TOTAL 0.7 MG/DL (0.2-1.0); C REACTIVE PROTEIN QUANTITATIV 0.91 MG/DL (0.00-0.30); CALCIUM LEVEL 9.8 MG/DL (8.8-10.2); CREATININE FOR GFR 1.32 MG/DL (0.55-1.30); GLOMERULAR FILTRATION RATE 42.4 (>39); POTASSIUM SERUM 4.3 MEQ/L (3.5-5.1); TOTAL PROTEIN 6.9 GM/DL (6.4-8.2)
[2021-03-06 12:01] LABS: ERYTHROCYTE SEDIMENTATION RATE 33 mm/hr (0-30)
== END ==
LOC: M SFHCRHEU 08:38
PROVIDERS: ATTEND Internal Medicine Rheumatology
DX: R76.8 Other specified abnormal immunological findings in serum (principal); M25.532 Pain in left wrist

== ENCOUNTER 2021-03-21 07:56 | Outpatient (RCR) | payer MEDICARE, BC, OTHER | END 2021-04-06 | LOC: M PT 07:56 | PROVIDERS: ATTEND Orthopaedic Surgery Adult Reconstructive Orthopaedic Surgery | DX: Z96.652 Presence of left artificial knee joint (principal) ==

== ENCOUNTER → 2021-04-09 | Outpatient (CLI) | payer MEDICARE, BC, OTHER ==
--- NOTE | 2021-04-09 12:11 | REP ---
INDICATION: RHEUMATOID FACTOR POSITIVE. COMPARISON: Right foot of 07/22/2020 no prior left foot TECHNIQUE: Four views each foot FINDINGS: There are mild degenerative changes seen bilaterally. The greatest degree of degenerative changes seen involving the 1st metatarsal-phalangeal joint bilaterally left greater than right. There is asymmetric joint space narrowing with mild marginal osteophytosis. There is no evidence of an acute fracture, dislocation, or subluxation seen involving either foot. There are bilateral type 1 os naviculare. Plantar calcaneal heel spurs are seen bilaterally. IMPRESSION: Chronic changes as described above. <Electronically signed by Saul Del Toro > 04/09/21 [id number]
--- NOTE | 2021-04-09 12:30 | REP ---
INDICATION: RHEUMATOID FACTOR POSITIVE, LEFT WRIST PAIN. COMPARISON: None. TECHNIQUE: Four views bilateral FINDINGS: There is bilateral rather symmetric appearing mild joint space narrowing seen throughout each hand. There is no periarticular osteopenia. There are no marginal erosions. There is no marginal osteophyte formation. There is no acute fracture, dislocation, or subluxation. IMPRESSION: Relatively mild appearing bilateral degenerative changes as described above. <Electronically signed by Saul Del Toro > 04/09/21 [id number]
== END ==
LOC: M WUC 10:30
PROVIDERS: ATTEND Internal Medicine Rheumatology
DX: R76.8 Other specified abnormal immunological findings in serum (principal); M25.532 Pain in left wrist; M77.31 Calcaneal spur, right foot; M77.32 Calcaneal spur, left foot; M19.90 Unspecified osteoarthritis, unspecified site

== ENCOUNTER → 2021-07-14 | Outpatient (CLI) | payer MEDICARE, BC, OTHER ==
[2021-07-14 11:11] LABS: HEMATOCRIT 30.6 % (36.0-47.0); HEMOGLOBIN 9.3 g/dl (12.0-15.5); MEAN CORPUSCULAR HEMOGLOBIN 19.8 pg (27.0-33.0); MEAN CORPUSCULAR HGB CONC 30.4 g/dl (32.0-36.5); MEAN CORPUSCULAR VOLUME 65.2 fl (80.0-96.0); PLATELET COUNT, AUTOMATED 175 10^3/uL (150-450); RED BLOOD COUNT 4.69 10^6/uL (4.00-5.40); WHITE BLOOD COUNT 6.9 10^3/uL (4.0-10.0)
[2021-07-14 11:45] LABS: ALBUMIN 3.6 GM/DL (3.2-5.2); BILIRUBIN,TOTAL 0.5 MG/DL (0.2-1.0); CHOLESTEROL RISK RATIO 2.102 (<5); CREATININE FOR GFR 1.34 MG/DL (0.55-1.30); FREE T4 1.33 NG/DL (0.76-1.46); GLOMERULAR FILTRATION RATE 41.6 (>39); POTASSIUM SERUM 4.7 MEQ/L (3.5-5.1); THYROID STIMULATING HORMONE 2.04 uIU/ML (0.358-3.740); TOTAL PROTEIN 6.8 GM/DL (6.4-8.2)
[2021-07-14 11:49] LABS: HEMOGLOBIN A1c 6.4 %
[2021-07-14 11:57] LABS: CREATININE, URINE 92.5 MG/DL; MALB URINE SIEMENS 39.5 MG/L; MAU/CREAT RATIO 42.7 MCG/MG (0.0-30.0)
== END ==
LOC: M LAB 09:56
PROVIDERS: ATTEND Physician Assistant
DX: E03.9 Hypothyroidism, unspecified (principal)

== ENCOUNTER → 2021-07-22 | Outpatient (CLI) | payer MEDICARE, BC, OTHER ==
[~2021-07-22] MED LIST changes: +FOLI400T13 PO; +HYDR-3713 PO; +PROBCAP14 PO; +VITATAB64 PO; +[UNRECOGNIZED DRUG - OTHER] PO
== END ==
LOC: M WHC 10:31
PROVIDERS: ATTEND Physician Assistant
DX: Z12.31 Encounter for screening mammogram for malignant neoplasm of breast (principal); Z13.820 Encounter for screening for osteoporosis; M81.0 Age-related osteoporosis without current pathological fracture

== ENCOUNTER → 2021-08-05 | Outpatient (CLI) | payer MEDICARE, BC, OTHER ==
[~2021-08-05] MED LIST changes: -FOLI400T13 PO; -HYDR-3713 PO; -PROBCAP14 PO; -VITATAB64 PO; -[UNRECOGNIZED DRUG - OTHER] PO
== END ==
LOC: M CARPUL 08:44
PROVIDERS: ATTEND Physician Assistant
DX: R01.1 Cardiac murmur, unspecified (principal)

== ENCOUNTER 2021-08-16 06:35 | Emergency (ER) | payer MEDICARE, BC, OTHER ==
[~2021-08-16] VITALS: Ht 147.3 cm; Wt 84.3 kg
[2021-08-16] MEDS ORDERED: FOLI400T13 PO (06:45)
[2021-08-16] MEDS ORDERED: NORCO, ANEXSIA 5/325MG TABLET (HYDROcodone/ACETAMINOPHEN) PO ONE (07:30)
[2021-08-16] MEDS ORDERED: HYDR-3713 PO (09:16)
[2021-08-16 09:30] VITALS: BP 168/88
== END 2021-08-16 09:31 | disposition home or self-care (01) ==
LOC: M ED 06:35
DX: S52.512A Displaced fracture of left radial styloid process, initial encounter for closed fracture (principal); S80.02XA Contusion of left knee, initial encounter; W00.9XXA Unspecified fall due to ice and snow, initial encounter; Y92.009 Unspecified place in unspecified non-institutional (private) residence as the place of occurrence of the external cause; Y93.9 Activity, unspecified; Y99.9 Unspecified external cause status; I10 Essential (primary) hypertension; E78.5 Hyperlipidemia, unspecified; E11.9 Type 2 diabetes mellitus without complications; Z88.0 Allergy status to penicillin; Z88.1 Allergy status to other antibiotic agents; Z88.2 Allergy status to sulfonamides; Z96.652 Presence of left artificial knee joint

== ENCOUNTER → 2021-08-21 | Outpatient (CLI) | payer MEDICARE, BC, OTHER ==
[~2021-08-21] MED LIST changes: +FOLI400T13 PO; +HYDR-3713 PO
== END ==
LOC: M RAD 10:06
PROVIDERS: ATTEND Orthopaedic Surgery
DX: S52.532A Colles' fracture of left radius, initial encounter for closed fracture (principal); W18.30XA Fall on same level, unspecified, initial encounter; Y92.009 Unspecified place in unspecified non-institutional (private) residence as the place of occurrence of the external cause

== ENCOUNTER → 2021-08-23 | Outpatient (CLI) | payer MEDICARE, BC, OTHER ==
[~2021-08-23] MED LIST changes: +PROBCAP14 PO; +VITATAB64 PO; +[UNRECOGNIZED DRUG - OTHER] PO
== END ==
LOC: M LABSMTC 09:25
PROVIDERS: ATTEND Anesthesiology
DX: Z01.818 Encounter for other preprocedural examination (principal); Z11.52 Encounter for screening for COVID-19

== ENCOUNTER → 2021-08-26 | Outpatient (REF) | payer MEDICARE, OTHER ==
[~2021-08-26] MED LIST changes: +BUPR-71 PO; -BUPR150T5 PO; +MECL-136 PO; +PERC5TAB12 PO
[2021-08-26 13:02] LABS: INR 0.95; PROTHROMBIN TIME 13.1 SECONDS (12.7-14.5)
[2021-08-26 13:03] LABS: PARTIAL THROMBOPLASTIN TIME 31.5 SECONDS (25.9-37.0)
[2021-08-26 13:24] LABS: CALCIUM LEVEL 10.2 MG/DL (8.8-10.2); CREATININE FOR GFR 1.46 MG/DL (0.55-1.30); GLOMERULAR FILTRATION RATE 37.7 (>39)
[2021-08-26 13:30] LABS: HEMOGLOBIN A1c 6.3 %
== END ==
LOC: M SFHCADAM 09:36
PROVIDERS: ATTEND Family Medicine
DX: Z01.818 Encounter for other preprocedural examination (principal); I10 Essential (primary) hypertension; E11.22 Type 2 diabetes mellitus with diabetic chronic kidney disease

== ENCOUNTER 2021-08-27 14:55 | Day surgery (SDC) | payer MEDICARE, BC, OTHER ==
[~2021-08-27] VITALS: Ht 147.3 cm; Wt 83.0 kg
[~2021-08-27 14:55] MED LIST changes: -BUPR-71 PO; +BUPR150T5 PO; +LR 1,000 ML IV ONE; -MECL-136 PO; -PERC5TAB12 PO; +fentaNYL 100 MCG/2 ML INJECTION IV PRN
[2021-08-27] MEDS ORDERED: ROPIvacaine 0.5% 30ML INJECTION (J2795 PER 1MG) XX ONE (15:30)
[2021-08-27] MEDS ORDERED: dexameTHASONE 10MG/1ML VIAL PRES.FREE (J1100 PER 1MG) XX ONE (15:45)
[2021-08-27] MEDS ORDERED: EPINEPHrine INJ 1 MG/ML 1ML AMP XX ONE (15:45)
[2021-08-27] MEDS ORDERED: LIDOCAINE 1% MDV 20ML VIAL XX ONE (15:45)
[2021-08-27] MEDS ORDERED: CLINDAMYCIN 900 MG in IV 1 EA IV ONE (15:45)
[2021-08-27] MEDS ORDERED: LIDOCAINE 2% 100MG/5ML SDV (FOR ANES.) As Ordered ONE (16:57)
[2021-08-27] MEDS ORDERED: DESFLURANE 240 ML INHALANT As Ordered ONE (16:57)
[2021-08-27] MEDS ORDERED: fentaNYL 100 MCG/2 ML INJECTION As Ordered ONE (16:57)
[2021-08-27] MEDS ORDERED: MIDAZOLAM INJ 2MG/2ML VIAL (J2250 PER 1MG) As Ordered ONE (16:57)
[2021-08-27] MEDS ORDERED: propofoL 200 MG/20 ML VIAL As Ordered ONE (16:57)
[2021-08-27] MEDS: MIDAZOLAM INJ 2MG/2ML VIAL (J2250 PER 1MG) IV PRN ×2 (17:01→17:15)
[2021-08-27] MEDS ORDERED: PERC5TAB12 PO (18:07)
[2021-08-27] MEDS ORDERED: dexameTHASONE 4 MG/ML 1ML VIAL (J1100 PER 1MG) As Ordered ONE (18:27)
[2021-08-27] MEDS ORDERED: ACETAMINOPHEN 1000MG 100ML IV BTL (OFIRMEV) (J0131 PER 10MG) As Ordered ONE (18:27)
[2021-08-27] MEDS ORDERED: BUPIVACAINE HCL 0.25% 30ML VIAL As Ordered ONE (18:46)
[2021-08-27] MEDS ORDERED: CLINDAMYCIN 900 MG/50 ML PREMIX BAG As Ordered ONE (18:47)
[2021-08-27] MEDS ORDERED: ePHEDrine SULFATE 25 MG/5 ML(5MG/ML) SYRINGE As Ordered ONE (18:49)
[2021-08-27] MEDS ORDERED: ONDANSETRON 4MG/2ML VIAL As Ordered ONE (18:49)
[2021-08-27] MEDS ORDERED: KETOROLAC 60MG 2ML VIAL As Ordered ONE (18:53)
[2021-08-27] MEDS ORDERED: fentaNYL 100 MCG/2 ML INJECTION IV PRN (19:30)
[2021-08-27] MEDS ORDERED: LR 1,000 ML IV SCH (19:30)
[2021-08-27] MEDS ORDERED: ONDANSETRON 4MG/2ML VIAL IV PRN (19:30)
[2021-08-27] MEDS ORDERED: METOCLOPRAMIDE INJ 10MG/2ML VIAL (J2765 PER 1) IV PRN (19:30)
[2021-08-27] MEDS: oxyCODONE 5MG TAB PO PRN ×2 (19:46→20:23)
[2021-08-27 21:05] VITALS: BP 165/78
== END 2021-08-27 21:06 | disposition home or self-care (01) ==
LOC: M SDC 14:55
PROVIDERS: ATTEND Orthopaedic Surgery Hand Surgery
DX: S52.572A Other intraarticular fracture of lower end of left radius, initial encounter for closed fracture (principal); W18.30XA Fall on same level, unspecified, initial encounter; Y92.89 Other specified places as the place of occurrence of the external cause; Y93.89 Activity, other specified; Y99.8 Other external cause status; I10 Essential (primary) hypertension; E11.9 Type 2 diabetes mellitus without complications; D56.9 Thalassemia, unspecified; G47.33 Obstructive sleep apnea (adult) (pediatric); E66.01 Morbid (severe) obesity due to excess calories; H81.10 Benign paroxysmal vertigo, unspecified ear; L74.4 Anhidrosis; H81.20 Vestibular neuronitis, unspecified ear; M19.90 Unspecified osteoarthritis, unspecified site; E03.9 Hypothyroidism, unspecified; E78.00 Pure hypercholesterolemia, unspecified; R01.1 Cardiac murmur, unspecified; Z79.899 Other long term (current) drug therapy; Z79.82 Long term (current) use of aspirin; Z79.891 Long term (current) use of opiate analgesic; Z88.1 Allergy status to other antibiotic agents; Z88.2 Allergy status to sulfonamides
CPT/HCPCS: 25609; 76000; C1713; J0131; J1100; J1885; J2250; J2405; J3010

== ENCOUNTER → 2021-09-05 | Outpatient (CLI) | payer MEDICARE, BC, OTHER ==
[~2021-09-05] MED LIST changes: +BUPR-71 PO; -BUPR150T5 PO; -LR 1,000 ML IV ONE; +MECL-136 PO; +PERC5TAB12 PO; -fentaNYL 100 MCG/2 ML INJECTION IV PRN
== END ==
LOC: M SOG 11:32
PROVIDERS: ATTEND Physician Assistant
DX: S52.532A Colles' fracture of left radius, initial encounter for closed fracture (principal); X58.XXXA Exposure to other specified factors, initial encounter; Y92.89 Other specified places as the place of occurrence of the external cause; Y93.89 Activity, other specified; Y99.8 Other external cause status

== ENCOUNTER → 2021-10-03 | Outpatient (CLI) | payer MEDICARE, BC, OTHER | LOC: M SOG 10:32 | PROVIDERS: ATTEND Physician Assistant | DX: S52.572D Other intraarticular fracture of lower end of left radius, subsequent encounter for closed fracture with routine healing (principal); W18.30XD Fall on same level, unspecified, subsequent encounter ==

== ENCOUNTER → 2021-10-30 | Outpatient (CLI) | payer MEDICARE, BC, OTHER | LOC: M SOG 14:28 | PROVIDERS: ATTEND Physician Assistant | DX: S52.572D Other intraarticular fracture of lower end of left radius, subsequent encounter for closed fracture with routine healing (principal) ==

== ENCOUNTER → 2021-12-11 | Outpatient (CLI) | payer MEDICARE, BC, OTHER | LOC: M SOG 08:38 | PROVIDERS: ATTEND Orthopaedic Surgery Hand Surgery | DX: S52.572D Other intraarticular fracture of lower end of left radius, subsequent encounter for closed fracture with routine healing (principal) ==

== ENCOUNTER → 2022-01-05 | Outpatient (CLI) | payer MEDICARE, BC, OTHER | LOC: M SOG 08:34 | PROVIDERS: ATTEND Orthopaedic Surgery Adult Reconstructive Orthopaedic Surgery | DX: M17.11 Unilateral primary osteoarthritis, right knee (principal); Z96.652 Presence of left artificial knee joint ==

== ENCOUNTER → 2022-01-08 | Outpatient (CLI) | payer MEDICARE, BC, OTHER | LOC: M WHC 10:55 | PROVIDERS: ATTEND Physician Assistant | DX: Z13.820 Encounter for screening for osteoporosis (principal); M81.0 Age-related osteoporosis without current pathological fracture ==

== ENCOUNTER → 2022-01-21 | Outpatient (CLI) | payer MEDICARE, BC, OTHER ==
[2022-01-21 10:16] LABS: HEMOGLOBIN A1c 6.7 %
[2022-01-21 10:36] LABS: ALBUMIN 3.8 GM/DL (3.2-5.2); BILIRUBIN,TOTAL 0.8 MG/DL (0.2-1.0); CALCIUM LEVEL 10.8 MG/DL (8.8-10.2); CREATININE FOR GFR 1.45 MG/DL (0.55-1.30); GLOMERULAR FILTRATION RATE 37.9 (>39); POTASSIUM SERUM 4.4 MEQ/L (3.5-5.1)
== END ==
LOC: M LAB 08:45
PROVIDERS: ATTEND Physician Assistant
DX: E11.22 Type 2 diabetes mellitus with diabetic chronic kidney disease (principal)

== ENCOUNTER → 2022-07-22 | Outpatient (CLI) | payer MEDICARE, BC, OTHER ==
[2022-07-22 08:43] LABS: HEMATOCRIT 29.1 % (36.0-47.0); HEMOGLOBIN 9.1 g/dl (12.0-15.5); MEAN CORPUSCULAR HGB CONC 31.3 g/dl (32.0-36.5); MEAN CORPUSCULAR VOLUME 64.1 fl (80.0-96.0); PLATELET COUNT, AUTOMATED 199 10^3/uL (150-450); RED BLOOD COUNT 4.54 10^6/uL (4.00-5.40); WHITE BLOOD COUNT 6.8 10^3/uL (4.0-10.0)
[2022-07-22 09:01] LABS: MAU/CREAT RATIO 19.4 MCG/MG (0.0-30.0)
[2022-07-22 09:06] LABS: ALBUMIN 3.6 G/DL (3.2-5.2); BILIRUBIN,TOTAL 0.7 MG/DL (0.3-1.2); CALCIUM LEVEL 10.5 MG/DL (8.3-10.6); CHOLESTEROL RISK RATIO 2.03 (<5); CREATININE FOR GFR 1.49 MG/DL (0.55-1.30); FREE T4 1.17 NG/DL (0.89-1.76); GLOMERULAR FILTRATION RATE 36.7 (>39); HDL CHOLESTEROL 60.5 MG/DL (>40); LDL CHOLESTEROL 51.5 MG/DL (<100); POTASSIUM SERUM 4.5 MMOL/L (3.5-5.1); THYROID STIMULATING HORMONE 6.75 uIU/ML (0.55-4.78); TOTAL PROTEIN 6.7 G/DL (5.7-8.2)
[2022-07-22 09:14] LABS: HEMOGLOBIN A1c 7.1 % (4.0-6.0)
== END ==
LOC: M LAB 07-21 16:03
PROVIDERS: ATTEND Physician Assistant
DX: E11.22 Type 2 diabetes mellitus with diabetic chronic kidney disease (principal); I12.9 Hypertensive chronic kidney disease with stage 1 through stage 4 chronic kidney disease, or unspecified chronic kidney disease; N18.31 Chronic kidney disease, stage 3a; E03.9 Hypothyroidism, unspecified

== ENCOUNTER → 2022-08-12 | Outpatient (CLI) | payer MEDICARE, BC, OTHER | LOC: M WHC 08:31 | PROVIDERS: ATTEND Physician Assistant | DX: Z12.31 Encounter for screening mammogram for malignant neoplasm of breast (principal) ==

== ENCOUNTER → 2022-09-24 | Outpatient (REF) | payer MEDICARE, OTHER ==
[~2022-09-24] MED LIST changes: +ASPI-655 PO; -ASPI1CHW3 PO
== END ==
LOC: M SFHCADAM 13:00
PROVIDERS: ATTEND Physician Assistant
DX: J00 Acute nasopharyngitis [common cold] (principal)

== ENCOUNTER → 2022-10-27 | Outpatient (CLI) | payer MEDICARE, BC, OTHER ==
[~2022-10-27] MED LIST changes: +B-COTAB10 PO; +REST0.05 OU
[2022-10-27 10:24] LABS: ALBUMIN 3.7 G/DL (3.2-5.2); BILIRUBIN,TOTAL 0.6 MG/DL (0.3-1.2); CALCIUM LEVEL 10.5 MG/DL (8.3-10.6); CREATININE FOR GFR 1.4 MG/DL (0.55-1.30); GLOMERULAR FILTRATION RATE 39.5 (>39); POTASSIUM SERUM 4.7 MMOL/L (3.5-5.1); TOTAL PROTEIN 6.7 G/DL (5.7-8.2)
== END ==
LOC: M LAB 09:00
PROVIDERS: ATTEND Physician Assistant
DX: I10 Essential (primary) hypertension (principal)

== ENCOUNTER 2022-11-05 11:52 | Day surgery (SDC) | payer MEDICARE, BC, OTHER ==
[~2022-11-05] VITALS: Ht 147.3 cm; Wt 83.8 kg
[~2022-11-05 11:52] MED LIST changes: +LIDOCAINE 2% 100MG/5ML SDV (FOR ANES.) As Ordered ONE; +NS 1,000 ML IV ONE; +fentaNYL 100 MCG/2 ML INJECTION As Ordered ONE; +propofoL 200 MG/20 ML VIAL As Ordered ONE
[2022-11-05 14:15] VITALS: BP 188/84
== END 2022-11-05 14:27 | disposition home or self-care (01) ==
LOC: M OPP 11:52
PROVIDERS: ATTEND Surgery
DX: D50.9 Iron deficiency anemia, unspecified (principal); K22.89 Other specified disease of esophagus; K29.50 Unspecified chronic gastritis without bleeding; K31.89 Other diseases of stomach and duodenum; I10 Essential (primary) hypertension; E78.5 Hyperlipidemia, unspecified; E11.9 Type 2 diabetes mellitus without complications; E03.9 Hypothyroidism, unspecified; K76.0 Fatty (change of) liver, not elsewhere classified; M19.90 Unspecified osteoarthritis, unspecified site; F41.9 Anxiety disorder, unspecified; J45.909 Unspecified asthma, uncomplicated; G47.33 Obstructive sleep apnea (adult) (pediatric); Z88.0 Allergy status to penicillin; Z88.1 Allergy status to other antibiotic agents; Z88.2 Allergy status to sulfonamides; Z79.82 Long term (current) use of aspirin; Z79.890 Hormone replacement therapy; Z79.899 Other long term (current) drug therapy
CPT/HCPCS: 43239; 88305; J3010

== ENCOUNTER → 2022-11-19 | Outpatient (CLI) | payer MEDICARE, BC, OTHER ==
[~2022-11-19] MED LIST changes: -LIDOCAINE 2% 100MG/5ML SDV (FOR ANES.) As Ordered ONE; -NS 1,000 ML IV ONE; -fentaNYL 100 MCG/2 ML INJECTION As Ordered ONE; -propofoL 200 MG/20 ML VIAL As Ordered ONE
== END ==
LOC: M RAD 06:59
PROVIDERS: ATTEND Physician Assistant
DX: R74.8 Abnormal levels of other serum enzymes (principal)

== ENCOUNTER → 2022-12-05 | Outpatient (CLI) | payer MEDICARE, BC, OTHER | LOC: M SLEEP 20:00 | PROVIDERS: ATTEND Nurse Practitioner Adult Health | DX: G47.33 Obstructive sleep apnea (adult) (pediatric) (principal) ==

== ENCOUNTER → 2023-02-02 | Outpatient (CLI) | payer MEDICARE, BC, OTHER ==
[~2023-02-02] MED LIST changes: +PANT40TA29 PO; +SUCR1TAB56 PO
[2023-02-02 10:22] LABS: HEMATOCRIT 28.4 % (36.0-47.0); HEMOGLOBIN 8.5 g/dl (12.0-15.5); MEAN CORPUSCULAR HEMOGLOBIN 20.1 pg (27.0-33.0); MEAN CORPUSCULAR HGB CONC 29.9 g/dl (32.0-36.5); MEAN CORPUSCULAR VOLUME 67.3 fl (80.0-96.0); PLATELET COUNT, AUTOMATED 192 10^3/uL (150-450); RED BLOOD COUNT 4.22 10^6/uL (4.00-5.40)
[2023-02-02 10:46] LABS: CREATININE, URINE 136.3 MG/DL
[2023-02-02 10:47] LABS: MAU/CREAT RATIO 26.4 MCG/MG (0.0-30.0)
[2023-02-02 10:48] LABS: ALBUMIN 3.7 G/DL (3.2-5.2); CALCIUM LEVEL 10.4 MG/DL (8.3-10.6); CHOLESTEROL RISK RATIO 2.06 (<5); CREATININE FOR GFR 1.58 MG/DL (0.55-1.30); GLOMERULAR FILTRATION RATE 34.2 (>39); HDL CHOLESTEROL 60.1 MG/DL (>40); LDL CHOLESTEROL 49.1 MG/DL (<100); NON-HDL-C 63.9 MG/DL; POTASSIUM SERUM 4.5 MMOL/L (3.5-5.1); TOTAL PROTEIN 6.8 G/DL (5.7-8.2)
[2023-02-02 10:50] LABS: FREE T4 1.22 NG/DL (0.89-1.76); THYROID STIMULATING HORMONE 5.689 uIU/ML (0.55-4.78); TOTAL 25(OH) VITAMIN D 27.3 NG/ML (20.0-100.0)
[2023-02-02 11:32] LABS: HEMOGLOBIN A1c 6.1 % (4.0-6.0)
== END ==
LOC: M LAB 09:26
PROVIDERS: ATTEND Physician Assistant
DX: I12.9 Hypertensive chronic kidney disease with stage 1 through stage 4 chronic kidney disease, or unspecified chronic kidney disease (principal); R74.9 Abnormal serum enzyme level, unspecified; M89.49 Other hypertrophic osteoarthropathy, multiple sites; D50.8 Other iron deficiency anemias; M81.0 Age-related osteoporosis without current pathological fracture; E11.22 Type 2 diabetes mellitus with diabetic chronic kidney disease

== ENCOUNTER → 2023-02-03 | Outpatient (REF) | payer MEDICARE, OTHER | LOC: M SFHCADAM 09:19 | PROVIDERS: ATTEND Physician Assistant | DX: E11.22 Type 2 diabetes mellitus with diabetic chronic kidney disease (principal); N18.31 Chronic kidney disease, stage 3a ==

== ENCOUNTER → 2023-06-15 | Outpatient (CLI) | payer MEDICARE, BC, OTHER ==
[~2023-06-15] MED LIST changes: +MAGN400C PO; +MECL-209 PO; -MECL1TAB31 PO
[2023-06-15 11:18] LABS: CALCIUM LEVEL 10.6 MG/DL (8.3-10.6); CREATININE FOR GFR 1.67 MG/DL (0.55-1.30); GLOMERULAR FILTRATION RATE 32.1 (>39); POTASSIUM SERUM 4.5 MMOL/L (3.5-5.1)
== END ==
LOC: M LAB 09:51
PROVIDERS: ATTEND Internal Medicine Endocrinology, Diabetes & Metabolism
DX: M81.0 Age-related osteoporosis without current pathological fracture (principal)

== ENCOUNTER → 2023-06-29 | Outpatient (CLI) | payer MEDICARE, BC, OTHER ==
[2023-06-29 07:51] LABS: CALCIUM LEVEL 9.9 MG/DL (8.3-10.6); CREATININE FOR GFR 1.5 MG/DL (0.55-1.30); GLOMERULAR FILTRATION RATE 36.3 (>39); MAGNESIUM LEVEL 1.6 MG/DL (1.8-2.4); POTASSIUM SERUM 4.6 MMOL/L (3.5-5.1)
[2023-06-29 08:04] LABS: HEMOGLOBIN A1c 7.3 % (4.0-6.0)
== END ==
LOC: M LAB 06:16
PROVIDERS: ATTEND Physician Assistant
DX: E11.22 Type 2 diabetes mellitus with diabetic chronic kidney disease (principal); I12.9 Hypertensive chronic kidney disease with stage 1 through stage 4 chronic kidney disease, or unspecified chronic kidney disease; E83.42 Hypomagnesemia

== ENCOUNTER → 2023-07-28 | Outpatient (CLI) | payer MEDICARE, BC, OTHER ==
[~2023-07-28] MED LIST changes: +SEMA0.257
== END ==
LOC: M WHC 09:01
PROVIDERS: ATTEND Physician Assistant
DX: Z12.31 Encounter for screening mammogram for malignant neoplasm of breast (principal)

== ENCOUNTER → 2023-09-10 | Outpatient (CLI) | payer MEDICARE, BC, OTHER | LOC: M SOG 08:03 | PROVIDERS: ATTEND Physician Assistant | DX: M25.562 Pain in left knee (principal) ==

== ENCOUNTER → 2023-11-19 | Outpatient (CLI) | payer MEDICARE, BC ==
[~2023-11-19] MED LIST changes: -SEMA0.257; +SEMA0.257 SQ
[2023-11-19 10:32] LABS: HEMOGLOBIN A1c 6.2 % (4.0-6.0)
== END ==
LOC: M LAB 08:37
PROVIDERS: ATTEND Physician Assistant
DX: E11.22 Type 2 diabetes mellitus with diabetic chronic kidney disease (principal)

== ENCOUNTER → 2023-11-24 | Outpatient (REF) | payer MEDICARE, BC | LOC: M SFHCADAM 09:37 | PROVIDERS: ATTEND Physician Assistant | DX: E11.22 Type 2 diabetes mellitus with diabetic chronic kidney disease (principal); E78.00 Pure hypercholesterolemia, unspecified; I10 Essential (primary) hypertension; E03.9 Hypothyroidism, unspecified ==

== ENCOUNTER → 2023-12-29 | Outpatient (CLI) | payer MEDICARE, BC | LOC: M LAB 09:30 | PROVIDERS: ATTEND Internal Medicine Endocrinology, Diabetes & Metabolism | DX: M81.0 Age-related osteoporosis without current pathological fracture (principal) ==

== ENCOUNTER → 2024-01-10 | Outpatient (CLI) | payer MEDICARE, BC | LOC: M WHC 10:26 | PROVIDERS: ATTEND Internal Medicine Endocrinology, Diabetes & Metabolism | DX: M81.0 Age-related osteoporosis without current pathological fracture (principal) ==

== ENCOUNTER → 2024-02-08 | Outpatient (REF) | payer MEDICARE, OTHER | LOC: M LAB REF 09:50 | PROVIDERS: ATTEND Physician Assistant | DX: R30.0 Dysuria (principal) ==

== ENCOUNTER → 2024-02-11 | Outpatient (CLI) | payer MEDICARE, BC ==
[2024-02-11 08:43] LABS: CHOLESTEROL RISK RATIO 2.3 (<5); HDL CHOLESTEROL 58.5 MG/DL (>40); LDL CHOLESTEROL 63.5 MG/DL (<100); NON-HDL-C 76.5 MG/DL
[2024-02-11 08:47] LABS: FREE T4 1.34 NG/DL (0.89-1.76); THYROID STIMULATING HORMONE 2.832 uIU/ML (0.55-4.78)
[2024-02-11 09:13] LABS: HEMOGLOBIN A1c 5.6 % (4.0-6.0)
== END ==
LOC: M LAB 07:48
PROVIDERS: ATTEND Physician Assistant
DX: E11.22 Type 2 diabetes mellitus with diabetic chronic kidney disease (principal); E78.00 Pure hypercholesterolemia, unspecified; I10 Essential (primary) hypertension; E03.9 Hypothyroidism, unspecified; Z79.899 Other long term (current) drug therapy; M81.0 Age-related osteoporosis without current pathological fracture

== ENCOUNTER → 2024-02-11 | Outpatient (CLI) | payer MEDICARE, BC ==
[2024-02-11 08:40] LABS: CALCIUM LEVEL 9.7 MG/DL (8.3-10.6)
[2024-02-11 08:45] LABS: TOTAL 25(OH) VITAMIN D 33.1 NG/ML (20.0-100.0)
== END ==
LOC: M LAB 07:47
PROVIDERS: ATTEND Nurse Practitioner Family
DX: M81.0 Age-related osteoporosis without current pathological fracture (principal)

== ENCOUNTER → 2024-03-30 | Outpatient (CLI) | payer MEDICARE, BC, OTHER | LOC: M SOG 07:26 | PROVIDERS: ATTEND Orthopaedic Surgery | DX: M25.561 Pain in right knee (principal); M76.891 Other specified enthesopathies of right lower limb, excluding foot; Z96.652 Presence of left artificial knee joint ==

== ENCOUNTER → 2024-06-22 | Outpatient (CLI) | payer MEDICARE, BC | LOC: M PLALAB 11:24 → M PLAIMG 11:24 | PROVIDERS: ATTEND Physician Assistant Medical | DX: J98.4 Other disorders of lung (principal) ==

== ENCOUNTER → 2024-06-23 | Outpatient (REF) | payer MEDICARE, BC | LOC: M SFHCPLAZ 16:56 | PROVIDERS: ATTEND Physician Assistant Medical | DX: R05.1 Acute cough (principal) ==

== ENCOUNTER → 2024-06-29 | Outpatient (CLI) | payer MEDICARE, BC ==
[2024-06-29 08:08] LABS: CALCIUM LEVEL 10.5 MG/DL (8.3-10.6); CREATININE FOR GFR 1.4 MG/DL (0.55-1.30); GLOMERULAR FILTRATION RATE 39.2 (>39); POTASSIUM SERUM 4.4 MMOL/L (3.5-5.1)
[2024-06-29 08:11] LABS: TOTAL 25(OH) VITAMIN D 27.7 NG/ML (20.0-100.0)
== END ==
LOC: M LAB 07:16
PROVIDERS: ATTEND Internal Medicine Endocrinology, Diabetes & Metabolism
DX: Z87.310 Personal history of (healed) osteoporosis fracture (principal)

== ENCOUNTER → 2024-07-18 | Outpatient (REF) | payer MEDICARE, BC, OTHER ==
[2024-07-18 18:14] LABS: FOLATE 19.2 NG/ML (>5.4)
== END ==
LOC: M LAB REF 17:27
PROVIDERS: ATTEND Internal Medicine Nephrology
DX: N18.9 Chronic kidney disease, unspecified (principal); D63.1 Anemia in chronic kidney disease

== ENCOUNTER → 2024-07-31 | Outpatient (CLI) | payer MEDICARE, BC | LOC: M WHC 07:56 | PROVIDERS: ATTEND Physician Assistant | DX: Z12.31 Encounter for screening mammogram for malignant neoplasm of breast (principal) ==

== ENCOUNTER → 2024-08-17 | Outpatient (CLI) | payer MEDICARE, BC ==
[~2024-08-17] MED LIST changes: +CALTTAB6 PO; +NOXI1TAB PO
== END ==
LOC: M RAD 13:47
PROVIDERS: ATTEND Neuromusculoskeletal Medicine, Sports Medicine
DX: M17.11 Unilateral primary osteoarthritis, right knee (principal)

== ENCOUNTER → 2024-08-21 | Outpatient (CLI) | payer MEDICARE, BC ==
[~2024-08-21] MED LIST changes: +ASPI-226 PO; +D31000TA PO; +FARX1TAB3 PO; +MAGN400T2 PO
[2024-08-21 11:46] LABS: ALBUMIN 3.6 G/DL (3.2-5.2); BILIRUBIN,TOTAL 0.7 MG/DL (0.3-1.2); CALCIUM LEVEL 9.6 MG/DL (8.3-10.6); CREATININE FOR GFR 1.38 MG/DL (0.55-1.30); GLOMERULAR FILTRATION RATE 39.9 (>39); POTASSIUM SERUM 4.9 MMOL/L (3.5-5.1); TOTAL PROTEIN 6.9 G/DL (5.7-8.2)
== END ==
LOC: M LAB 10:18
PROVIDERS: ATTEND Neuromusculoskeletal Medicine, Sports Medicine
DX: M17.11 Unilateral primary osteoarthritis, right knee (principal); E11.22 Type 2 diabetes mellitus with diabetic chronic kidney disease

== ENCOUNTER → 2024-08-21 | Outpatient (CLI) | payer MEDICARE, BC ==
[2024-08-21 11:28] LABS: HEMOGLOBIN A1c 5.7 % (4.0-6.0)
== END ==
LOC: M LAB 10:20
PROVIDERS: ATTEND Physician Assistant
DX: E11.22 Type 2 diabetes mellitus with diabetic chronic kidney disease (principal)

== ENCOUNTER → 2024-08-28 | Outpatient (REF) | payer MEDICARE, BC, OTHER | LOC: M LAB REF 17:05 | PROVIDERS: ATTEND Neuromusculoskeletal Medicine, Sports Medicine | DX: M17.11 Unilateral primary osteoarthritis, right knee (principal); M70.52 Other bursitis of knee, left knee ==

== ENCOUNTER 2024-09-05 07:27 | Observation (INO) | payer MEDICARE, BC ==
[~2024-09-05] VITALS: Ht 147.3 cm; Wt 77.0 kg
[2024-09-05] VITALS (7 sets, daily range): BP systolic 137–168; BP diastolic 55–65; TEMP 96.4–97.7; O2SAT 95–99
[2024-09-05] MEDS ORDERED: MIDAZOLAM INJ 2MG/2ML VIAL IV PRN (07:55)
[2024-09-05] MEDS ORDERED: fentaNYL 100 MCG/2 ML INJECTION As Ordered ONE (08:13)
[2024-09-05] MEDS ORDERED: ACET1TAB55 PO (08:26)
[2024-09-05] MEDS ORDERED: HOME MED LIST COMPLETE! XX SCH (08:30)
[2024-09-05] MEDS ORDERED: REK 50ML SYRINGE IA ONE (08:30)
[2024-09-05] MEDS: LR 1,000 ML IV SCH (08:35)
[2024-09-05] MEDS: fentaNYL 100 MCG/2 ML INJECTION IV PRN (08:45)
[2024-09-05] MEDS: ROPIvacaine 0.5% 30ML VIAL PN ONE (08:50)
[2024-09-05] MEDS: dexAMETHasone 10MG/1ML VIAL PRES.FREE PN ONE (08:50)
[2024-09-05] MEDS: ceFAZolin SOD 2 GM IV ONCE IV ONE (09:16)
[2024-09-05] MEDS: TRANEXAMIC ACID 100 MG/ML 10ML VIAL As Ordered ONE (09:17)
[2024-09-05] MEDS: VANCOMYCIN HCL 1,000 MG, VIAL MATE ADAPTER 1 EACH in NS 250 ML IV ONE (10:27)
[2024-09-05] MEDS: MORPHINE 10 MG/ML 1ML VIAL As Ordered ONE (11:22)
[2024-09-05] MEDS: BUPivacaine LIPOSOME/PF 266MG 20ML VIAL (13.3MG/ML)(EXPAREL) As Ordered ONE (11:22)
[2024-09-05] MEDS: KETOROLAC 30 MG/ML 1ML VIAL As Ordered ONE (11:23)
[2024-09-05] MEDS ORDERED: propofoL 200 MG/20 ML VIAL As Ordered ONE (11:32)
[2024-09-05] MEDS: VANCOMYCIN 1000MG/20ML VIAL As Ordered ONE (11:37)
[2024-09-05] MEDS ORDERED: MEPERIDINE 25 MG/ML 1ML VIAL IV PRN (12:40)
[2024-09-05] MEDS ORDERED: METOCLOPRAMIDE INJ 10MG/2ML VIAL IV PRN (12:40)
[2024-09-05] MEDS ORDERED: fentaNYL 100 MCG/2 ML INJECTION IV PRN (12:40)
[2024-09-05] MEDS: oxyCODONE 5MG TAB PO PRN (12:52)
[2024-09-05] MEDS: HYDROMORPHONE HCL 0.5 MG/ 0.5 ML SYRINGE IV PRN (12:53)
[2024-09-05] MEDS: ONDANSETRON 4MG 2ML VIAL IV PRN ×2 (12:53→18:13)
[2024-09-05] MEDS ORDERED: INSULIN LISPRO (NovoLOG) PER UNIT SC PRN (13:00)
[2024-09-05] MEDS: INSULIN LISPRO (NovoLOG) PER UNIT SC PRN (13:00)
[2024-09-05] MEDS ORDERED: ACETAMINOPHEN 325 MG TAB PO PRN (13:05)
[2024-09-05] MEDS ORDERED: POLYVINYL ALCOHOL OPHTH SOLN 15ML (LIQUITEARS) OU PRN (13:15)
[2024-09-05] MEDS ORDERED: GLUCOSE 4 GM CHEW PO PRN (13:20)
[2024-09-05] MEDS ORDERED: GLUCAGON INJ 1MG VIAL SC PRN (13:20)
[2024-09-05] MEDS ORDERED: oxyCODONE 5MG TAB PO PRN (13:20)
[2024-09-05] MEDS ORDERED: DEXTROSE 50% 50ML SYRINGE IV PRN (13:20)
[2024-09-05] MEDS: PROMETHAZINE 25MG/ML 1ML VIAL IV PRN (13:39)
[2024-09-05 13:55] LABS: HEMATOCRIT 29.7 % (36.0-47.0); HEMOGLOBIN 9.3 g/dl (12.0-15.5); MEAN CORPUSCULAR HEMOGLOBIN 20.4 pg (27.0-33.0); MEAN CORPUSCULAR HGB CONC 31.3 g/dl (32.0-36.5); MEAN CORPUSCULAR VOLUME 65.1 fl (80.0-96.0); PLATELET COUNT, AUTOMATED 129 10^3/uL (150-450); RED BLOOD COUNT 4.56 10^6/uL (4.00-5.40); WHITE BLOOD COUNT 6.4 10^3/uL (4.0-10.0)
[2024-09-05 16:13] LABS: ALBUMIN 3.1 G/DL (3.2-5.2); BILIRUBIN,DIRECT 0.2 MG/DL (<0.4); BILIRUBIN,TOTAL 0.4 MG/DL (0.3-1.2); CALCIUM LEVEL 8.2 MG/DL (8.3-10.6); CREATININE FOR GFR 1.14 MG/DL (0.55-1.30); GLOMERULAR FILTRATION RATE 49.7 (>39); POTASSIUM SERUM 4.6 MMOL/L (3.5-5.1)
[2024-09-05] MEDS: INSULIN LISPRO (NovoLOG) PER UNIT SC SCH ×2 (17:56→21:00)
[2024-09-05] MEDS: ceFAZolin SODIUM 2 GM in DEXTROSE 5% (D5W) ADV/MINI-BAG 50 ML IV SCH (17:56)
[2024-09-05] MEDS: MECLIZINE 25 MG TABLET PO PRN (19:47)
[2024-09-05] MEDS: METOCLOPRAMIDE INJ 10MG/2ML VIAL IV ONE (20:01)
[2024-09-05] MEDS: PANTOPRAZOLE 40MG VIAL IV ONE (20:01)
[2024-09-05] MEDS: buPROPion **SR TABLET** (ZYBAN) 150MG PO SCH (21:17)
[2024-09-05] MEDS: SIMVASTATIN 10 MG TAB PO SCH (21:17)
[2024-09-06 05:18] VITALS: BP 147/61; TEMP 97; O2SAT 98
[2024-09-06] MEDS: LEVOTHYROXINE 125MCG TABLET (0.125MG) PO SCH (05:32)
[2024-09-06 06:54] LABS: HEMATOCRIT 29.4 % (36.0-47.0); HEMOGLOBIN 9.1 g/dl (12.0-15.5); MEAN CORPUSCULAR HEMOGLOBIN 20.2 pg (27.0-33.0); MEAN CORPUSCULAR VOLUME 65.2 fl (80.0-96.0); PLATELET COUNT, AUTOMATED 138 10^3/uL (150-450); RED BLOOD COUNT 4.51 10^6/uL (4.00-5.40); WHITE BLOOD COUNT 9.7 10^3/uL (4.0-10.0)
[2024-09-06 07:00] LABS: INR 1.09; PROTHROMBIN TIME 14.4 SECONDS (12.5-14.5)
[2024-09-06 07:34] LABS: ALBUMIN 3.1 G/DL (3.2-5.2); BILIRUBIN,TOTAL 0.4 MG/DL (0.3-1.2); CALCIUM LEVEL 7.9 MG/DL (8.3-10.6); CREATININE FOR GFR 1.33 MG/DL (0.55-1.30); GLOMERULAR FILTRATION RATE 41.6 (>39); PHOSPHORUS LEVEL 3.1 MG/DL (2.4-5.1); POTASSIUM SERUM 4.7 MMOL/L (3.5-5.1)
[2024-09-06] MEDS: ASPIRIN 81MG ENTERIC TABLET PO SCH (08:17)
[2024-09-06] MEDS: amLODIPine 5 MG TAB PO SCH (08:18)
[2024-09-06 08:25] VITALS: BP 143/60
[2024-09-06] MEDS: VALSARTAN 80 MG TAB (DIOVAN) PO SCH (08:25)
[2024-09-06 12:38] VITALS: BP 138/59; TEMP 97.5; O2SAT 96
[2024-09-06] MEDS ORDERED: ASPI81TAEC PO (15:45)
== END 2024-09-06 16:30 | disposition home or self-care (01) ==
LOC: M SDC 07:27 → INTOOBSV 13:04 → M RR INP 13:04 → M MS5PR 14:20
PROVIDERS: ADMIT Student in an Organized Health Care Education/Training Program; ATTEND Neuromusculoskeletal Medicine, Sports Medicine
DX: M17.11 Unilateral primary osteoarthritis, right knee (principal); R11.0 Nausea; G47.33 Obstructive sleep apnea (adult) (pediatric); E11.22 Type 2 diabetes mellitus with diabetic chronic kidney disease; I12.9 Hypertensive chronic kidney disease with stage 1 through stage 4 chronic kidney disease, or unspecified chronic kidney disease; D69.6 Thrombocytopenia, unspecified; F39 Unspecified mood [affective] disorder; E03.9 Hypothyroidism, unspecified; H04.123 Dry eye syndrome of bilateral lacrimal glands; D56.1 Beta thalassemia; D50.9 Iron deficiency anemia, unspecified; R42 Dizziness and giddiness; E78.5 Hyperlipidemia, unspecified; N18.32 Chronic kidney disease, stage 3b; Z96.652 Presence of left artificial knee joint; Z98.891 History of uterine scar from previous surgery; Z90.89 Acquired absence of other organs; Z98.84 Bariatric surgery status; Z86.0100 Personal history of colon polyps, unspecified; Z82.0 Family history of epilepsy and other diseases of the nervous system; Z88.0 Allergy status to penicillin; Z88.2 Allergy status to sulfonamides; Z88.1 Allergy status to other antibiotic agents; Z79.899 Other long term (current) drug therapy; Z79.890 Hormone replacement therapy
CPT/HCPCS: 27447; 36415; 73560; 80048; 80053; 80069; 80076; 85027; 85610; 88300; 93005; 94660; 96374; 96375; 96376; 97161; 97165; 97530; 97535; C1776; G0378; J0665; J0666; J0690; J1171; J1815; J1885; J2405; J2470; J2550; J2765; J3010; J3370; S2900

== ENCOUNTER → 2024-09-18 | Outpatient (CLI) | payer MEDICARE, BC, OTHER ==
[~2024-09-18] MED LIST changes: +ASPI81TAEC PO
== END ==
LOC: M SOG 09:39
PROVIDERS: ATTEND Physician Assistant
DX: M17.11 Unilateral primary osteoarthritis, right knee (principal)

== ENCOUNTER → 2025-01-23 | Outpatient (CLI) | payer MEDICARE, BC, OTHER ==
[~2025-01-23] MED LIST changes: +AZIT-10
[2025-01-23 13:33] LABS: CALCIUM LEVEL 10.4 MG/DL (8.3-10.6); CARBON DIOXIDE LEVEL 29.0 MMOL/L (20-31); CHLORIDE LEVEL 108.0 MMOL/L (98-107); CREATININE FOR GFR 1.16 MG/DL (0.55-1.30); GLOMERULAR FILTRATION RATE 49.5 (>39); POTASSIUM SERUM 4.1 MMOL/L (3.5-5.1); SODIUM LEVEL 145.0 MMOL/L (136-145)
[2025-01-23 13:35] LABS: TOTAL 25(OH) VITAMIN D 25.0 NG/ML (20.0-100.0)
== END ==
LOC: M LAB 12:26
PROVIDERS: ATTEND Nurse Practitioner Family
DX: M81.0 Age-related osteoporosis without current pathological fracture (principal)

== ENCOUNTER → 2025-02-27 | Outpatient (REF) | payer MEDICARE, BC ==
[~2025-02-27] MED LIST changes: -ASPI-655 PO; +ASPI-737 PO
[2025-02-27 15:47] LABS: FREE T4 0.81 NG/DL (0.89-1.76)
[2025-02-27 16:00] LABS: ALT/SGPT 27.0 U/L (7.0-40); AST/SGOT 40.0 U/L (<34); CALCIUM LEVEL 9.3 MG/DL (8.3-10.6); CARBON DIOXIDE LEVEL 27.0 MMOL/L (20-31); CHLORIDE LEVEL 107.0 MMOL/L (98-107); CREATININE FOR GFR 1.15 MG/DL (0.55-1.30); GLOMERULAR FILTRATION RATE 50.0 (>39); POTASSIUM SERUM 4.7 MMOL/L (3.5-5.1); SODIUM LEVEL 142.0 MMOL/L (136-145)
[2025-02-27 19:43] LABS: ESTIMATED AVERAGE GLUCOSE 126.0 MG/DL (60-110)
== END ==
LOC: M SFHCADAM 09:27
PROVIDERS: ATTEND Physician Assistant
DX: Z00.00 Encounter for general adult medical examination without abnormal findings (principal); E11.22 Type 2 diabetes mellitus with diabetic chronic kidney disease; I12.9 Hypertensive chronic kidney disease with stage 1 through stage 4 chronic kidney disease, or unspecified chronic kidney disease; E78.00 Pure hypercholesterolemia, unspecified; E03.9 Hypothyroidism, unspecified; G47.33 Obstructive sleep apnea (adult) (pediatric); D56.1 Beta thalassemia; E66.01 Morbid (severe) obesity due to excess calories; Z68.36 Body mass index [BMI] 36.0-36.9, adult; E66.812 Obesity, class 2; M81.0 Age-related osteoporosis without current pathological fracture

== ENCOUNTER → 2025-05-23 | Outpatient (REF) | payer MEDICARE, BC ==
[~2025-05-23] MED LIST changes: +EQL50TAB2 PO; +LEVO150T7; -RA B1TAB2 PO; +TIRZ7.5P
[2025-05-23 13:55] LABS: BASO # 0.0 10^3/uL (0.0-0.2); BASO % 0.6 % (0.0-1.0); EOS # 0.1 10^3/uL (0.0-0.5); EOS % 1.9 % (0.0-3.0); LYMPH # 1.3 10^3/uL (1.5-5.0); LYMPH % 20.0 % (24.0-44.0); MONO # 0.5 10^3/uL (0.0-0.8); MONO % 8.3 % (2.0-8.0); NEUTROPHILS # 4.4 10^3/uL (1.5-8.5); NEUTROPHILS % 68.9 % (36.0-66.0); PLATELET COUNT, AUTOMATED 183 10^3/uL (150-450)
[2025-05-23 14:27] LABS: ALT/SGPT 26 U/L (7.0-40); AST/SGOT 40 U/L (<34); CALCIUM LEVEL 10.1 MG/DL (8.3-10.6); CARBON DIOXIDE LEVEL 27 MMOL/L (20-31); CHLORIDE LEVEL 107 MMOL/L (98-107); CHOLESTEROL LEVEL 152 MG/DL (<200); CHOLESTEROL RISK RATIO 2.63 (<5); CREATININE FOR GFR 0.98 MG/DL (0.55-1.30); FREE T4 0.73 NG/DL (0.89-1.76); GLOMERULAR FILTRATION RATE 60.6 (>39); IRON (FE) 91 UG/DL (50-170); LDL CHOLESTEROL 79.7 MG/DL (<100); NON-HDL-C 94.3 MG/DL; PERCENT SATURATION 41.6 % (13.2-45.0); POTASSIUM SERUM 5.1 MMOL/L (3.5-5.1); SODIUM LEVEL 143 MMOL/L (136-145); TRIGLYCERIDES LEVEL 73 MG/DL (<150); VITAMIN B12 LEVEL 781 PG/ML (211-911)
[2025-05-23 17:13] LABS: ESTIMATED AVERAGE GLUCOSE 126.0 MG/DL (60-110)
== END ==
LOC: M SFHCADAM 09:50
PROVIDERS: ATTEND Physician Assistant
DX: R73.9 Hyperglycemia, unspecified (principal); G47.33 Obstructive sleep apnea (adult) (pediatric); R41.3 Other amnesia; N18.32 Chronic kidney disease, stage 3b; E03.9 Hypothyroidism, unspecified; D56.1 Beta thalassemia; Z11.3 Encounter for screening for infections with a predominantly sexual mode of transmission; Z72.89 Other problems related to lifestyle